=== PATIENT | male | born 1955 | race Two or more races ===

== ENCOUNTER 2020-03-07 09:02 | Inpatient (IN) | payer SELFPAY ==
[~2020-03-07] VITALS: Ht 165.1 cm; Wt 89.2 kg
[~2020-03-07 09:02] MED LIST: NAPR-695 PO
[2020-03-07 09:36] LABS: BASO # 0.1 x10^3/uL (0.0-0.2); BASO % 0 % (0-3); EOS % 0 % (0-3); HEMATOCRIT 44.7 % (39.0-53.0); HEMOGLOBIN 15.5 g/dL (13.0-17.5); LYMPH # 0.9 x10^3/uL (1.0-4.8); LYMPH % 8 % (24-48); MEAN CORPUSCULAR HEMOGLOBIN 31 pg (25-35); MEAN CORPUSCULAR HGB CONC 35 g/dL (31-37); MEAN CORPUSCULAR VOLUME 90 fL (79-100); MONO # 0.9 x10^3/uL (0.0-1.1); MONO % 8 % (0-9); NEUT # 10.5 x10^3/uL (1.8-7.7); NEUT % 85 % (31-73); PLATELET COUNT 178 x10^3/uL (140-400); RED BLOOD COUNT 4.99 x10^6/uL (4.30-5.70); RED CELL DISTRIBUTION WIDTH 14.5 % (11.5-14.5); WHITE BLOOD COUNT 12.4 x10^3/uL (4.0-11.0)
[2020-03-07 09:50] LABS: CALCIUM 9.1 mg/dL (8.5-10.1); CREATININE 0.9 mg/dL (0.7-1.3); GFR 85.2; POTASSIUM 4.1 mmol/L (3.5-5.1)
[2020-03-07 09:54] LABS: ALBUMIN 4.1 g/dL (3.4-5.0); ALBUMIN/GLOBULIN RATIO 1.2 (1.0-1.7); MAGNESIUM 2.2 mg/dL (1.8-2.4); TOTAL BILIRUBIN 1.6 mg/dL (0.2-1.0); TOTAL PROTEIN 7.6 g/dL (6.4-8.2)
--- NOTE | 2020-03-07 10:17 | RAD ---
KNEE BILAT 3V DATE: 03/07/2020 9:26 AM INDICATION: Reason: trauma / Spl. Instructions: / History: COMPARISON: None. FINDINGS: Right: No acute fracture. Prior ORIF of the femur. Joint spaces are preserved. No knee joint effusion. Left: No acute fracture. Joint spaces are maintained. No knee joint effusion. IMPRESSION: No evidence of acute fracture. Electronically signed by: Manpreet Pino MD (03/07/2020 10:14 AM) [id number]
--- NOTE | 2020-03-07 10:21 | RAD ---
ELBOW BILAT 2V DATE: 03/07/2020 9:26 AM INDICATION: Reason: trauma / Spl. Instructions: / History: COMPARISON: None. FINDINGS: Right: There is no evidence of acute fracture or dislocation. The joint spaces are normal. There is no joint effusion. Left: There is no evidence of acute fracture or dislocation. The joint spaces are normal. There is no joint effusion. IMPRESSION: No evidence of acute fracture. Electronically signed by: Manpreet Pino MD (03/07/2020 10:18 AM) [id number]
--- NOTE | 2020-03-07 10:25 | EKG ---
[facility] [address] [place] [address] Test Date: 2020-03-07 Test Time: 09:16:09 Pat Name: BRITTANIE LOVE Department: Room: Gender: M Provider Contracting Consultant: : [id number] Requested By: TIFFANIE NEGRO Order Number: [id number] Reading MD: Kiko Knott MD Measurements Intervals [place] Rate: 86 P: -56 NM: 142 QRS: 46 QRSD: 98 T: 74 QT: 372 QTc: 448 Interpretive Statements SINUS RHYTHM Electronically Signed On 03-29-2020 9:48:39 CDT by Kiko Knott MD
--- NOTE | 2020-03-07 10:31 | RAD ---
FOOT RIGHT 2V DATE: 03/07/2020 9:26 AM INDICATION: Reason: trauma / Spl. Instructions: / History: COMPARISON: None. FINDINGS: Right: No acute fracture. Joint spaces are maintained. Left: No acute fracture. Joint spaces are maintained. IMPRESSION: No evidence of acute fracture. Electronically signed by: Manpreet Pino MD (03/07/2020 10:28 AM) [id number]
--- NOTE | 2020-03-07 10:34 | RAD ---
CT brain without contrast. HISTORY: Right-sided weakness CT scan of the brain was done without contrast. Visualized sinuses are clear. There is no intracranial hemorrhage or subdural hematoma. There is subcutaneous density is near the convexity, sebaceous cyst can have this pattern. There is no mass or shift of the midline. Ventricles are normal in size. There is decreased density in the left basal ganglia continuing into the periventricular white matter on the left consistent with an acute CVA. There is no intracranial hemorrhage. There are subcutaneous calcifications and thickening of the scan on the left which can be seen with an old injury or a hemangioma. IMPRESSION: 1. 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 2. No intracranial hemorrhage. PQRS Compliance Statement: One or more of the following individualized dose reduction techniques were utilized for this examination: 1. Automated exposure control 2. Adjustment of the mA and/or kV according to patient size 3. Use of iterative reconstruction technique Electronically signed by: Min Blas MD (03/07/2020 10:31 AM) [id number]
--- NOTE | 2020-03-07 10:51 | PDOC1 ---
History and Physical Date of Admission Date of Admission DATE: 03/07/20 TIME: 10:51 Identification/Chief Complaint Chief Complaint SEEN IN ER WITH CVA 64 year old male who presents with weakness, slurred speech. According to patient this started yesterday morning. He is unsure what time. has had a fall since that happened. Is having difficult time walking. He is having a difficult time communicating. History is limited secondary to slurred speech CT HEAD C/W CVA Past Medical History Past Medical History PAST MEDICAL HISTORY: Shows normal childhood diseases. No high blood pressure, cancer, TB, asthma, or diabetes. MEDICATIONS: He takes no medicine. ALLERGIES: He has no allergies. SOCIAL HISTORY: He does not drink, smoke, or use illicit drugs. Pulmonary: No pertinent hx Family History Family History: Hypertension Social History Smoke: No ALCOHOL: none Drugs: None Current Medications Current Medications Active Scripts Active Reported Naproxen 375 Mg Tablet 1 Tab PO BID Allergies Allergies: Coded Allergies: No Known Drug Allergies (Unverified , 03/06/15) ROS Review of System Review of Systems: Review of Systems: General: Denies fever, chills, sweats, fatigue Eyes: Denies drainage, blurred vision HENT: Denies rhinorrhea, sore throat Respiratory: Denies cough, shortness of breath, wheezing Cardiac: Denies edema, palpitations, chest pain GI: Denies abdominal pain, N/V MSK: Denies back pain, neck pain Skin: Denies rash, jaundice Neuro: Denies headache, dizziness reports weakness Psychiatric: Denies SI/HI 14 PT ROS OTHERWISE NEG General: YES: Fatigue PSYCHOLOGICAL ROS: No: Anxiety, Behavioral Disorder, Concentration difficultie, Decreased libido, Depression, Disorientation, Hallucinations, Hostility, Irritablity, Memory difficulties, Mood Swings, Obsessive thoughts, Physical abuse, Sexual abuse, Sleep disturbances, Suicidal ideation, Other HEENT: No: Heacaches, Visual Changes, Hearing change, Nasal congestion, Nasal discharge, Oral lesions, Sinus pain, Sore Throat, Epistaxis, Sneezing, Snoring, Tinnitus, Vertigo, Vocal changes, Other ALLERGY AND IMMUNOLOGY: No: Hives, Insect Bite Sensitivity, Itchy/Watery Eyes, Nasal Congestion, Post Nasal Drip, Seasonal Allergies, Other Hematological and Lymphatic: No: Bleeding Problems, Blood Clots, Blood Transfusions, Brusing, Night Sweats, Pallor, Swollen Lymph Nodes, Other Respiratory: No: Cough, Hemoptysis, Orthopnea, Pleuritic Pain, Shortness of breath, SOB with excertion, Sputum Changes, Stridor, Tachypnea, Wheezing, Other Cardiovascular: No Chest Pain, No Palpitations, No Orthopnea, No Paroxysmal Noc. Dyspnea, No Edema, No Lt Headedness, No Other Gastrointestinal: No Nausea, No Vomiting, No Abdominal Pain, No Diarrhea, No Constipation, No Melena, No Hematochezia, No Other Musculoskeletal: Yes Gait Disturbance, Yes Joint Stiffness Neurological: Yes Confusion, Yes Gait Disturbance Skin: No Dry Skin, No Eczema, No Hair Changes, No Lumps, No Mole Changes, No Mottling, No Nail Changes, No Pruritus, No Rash, No Skin Lesion Changes, No Other, No Acne Physical Exam Physical Exam PE: Constitutional: Well developed, well nourished, Cooperative, tearful, non-toxic appearing HEENT: Normocephalic, atraumatic, oropharynx moist, EOMI, PERRL, no drainage from eyes, normal conjunctiva Neck: Supple, normal range of motion, no stridor Cardiovascular: RRR, 2+ radial pulses bilaterally, no edema Respiratory: CTA bilaterally, no respiratory distress, no wheezing/crackles Abdomen: Soft, nontender, nondistended, no masses Skin: Warm, dry, intact MULTIPLE SKIN FIBROMAS c/w neurofibromatosis Extremities: No obvious deformities Neurologic: Alert and Oriented x3, 0/5 strength RUE, 5/5 strength LUE/LLE, 4/5 strengh RLE, R sided facial droop, slurred speech, decreased sensation to R lower face, unable to ambulate Psychologic: Normal affect, normal judgment, normal mood. No SI/HI General: Alert, Oriented X3, Cooperative, No acute distress HEENT: Atraumatic Lungs: Clear to auscultation Heart: RRR Breasts: Not examined Abdomen: Normal bowel sounds, Soft Rectal Exam: not examined Extremities: No cyanosis Psych/Mental Status: Mood NL Vitals Vitals Vital Signs Date Time Temp Pulse Resp B/P (MAP) Pulse Ox O2 Delivery O2 Flow Rate FiO2 03/07/20 10:15 84 160/77 (104) 95 Room Air 03/07/20 09:06 98.5 20 98.5 Labs Labs Laboratory Tests Test 03/07/20 09:14 03/07/20 09:20 Glucose (Fingerstick) 112 mg/dL (70-99) White Blood Count 12.4 x10^3/uL (4.0-11.0) Red Blood Count 4.99 x10^6/uL (4.30-5.70) Hemoglobin 15.5 g/dL (13.0-17.5) Hematocrit 44.7 % (39.0-53.0) Mean Corpuscular Volume 90 fL (79-100) Mean Corpuscular Hemoglobin 31 pg (25-35) Mean Corpuscular Hemoglobin Concent 35 g/dL (31-37) Red Cell Distribution Width 14.5 % (11.5-14.5) Platelet Count 178 x10^3/uL (140-400) Neutrophils (%) (Auto) 85 % (31-73) Lymphocytes (%) (Auto) 8 % (24-48) Monocytes (%) (Auto) 8 % (0-9) Eosinophils (%) (Auto) 0 % (0-3) Basophils (%) (Auto) 0 % (0-3) Neutrophils # (Auto) 10.5 x10^3/uL (1.8-7.7) Lymphocytes # (Auto) 0.9 x10^3/uL (1.0-4.8) Monocytes # (Auto) 0.9 x10^3/uL (0.0-1.1) Eosinophils # (Auto) 0.0 x10^3/uL (0.0-0.7) Basophils # (Auto) 0.1 x10^3/uL (0.0-0.2) Prothrombin Time 14.0 SEC (11.7-14.0) Prothromb Time International Ratio 1.1 (0.8-1.1) Activated Partial Thromboplast Time 33 SEC (24-38) Sodium Level 145 mmol/L (136-145) Potassium Level 4.1 mmol/L (3.5-5.1) Chloride Level 106 mmol/L (98-107) Carbon Dioxide Level 22 mmol/L (21-32) Anion Gap 17 (6-14) Blood Urea Nitrogen 36 mg/dL (8-26) Creatinine 0.9 mg/dL (0.7-1.3) Estimated GFR (Cockcroft-Gault) 85.2 BUN/Creatinine Ratio 40 (6-20) Glucose Level 110 mg/dL (70-99) Calcium Level 9.1 mg/dL (8.5-10.1) Magnesium Level 2.2 mg/dL (1.8-2.4) Total Bilirubin 1.6 mg/dL (0.2-1.0) Aspartate Amino Transf (AST/SGOT) 28 U/L (15-37) Alanine Aminotransferase (ALT/SGPT) 37 U/L (16-63) Alkaline Phosphatase 97 U/L (46-116) Troponin I Quantitative < 0.017 ng/mL (0.000-0.055) Total Protein 7.6 g/dL (6.4-8.2) Albumin 4.1 g/dL (3.4-5.0) Albumin/Globulin Ratio 1.2 (1.0-1.7) Laboratory Tests Test 03/07/20 09:14 03/07/20 09:20 Glucose (Fingerstick) 112 mg/dL (70-99) White Blood Count 12.4 x10^3/uL (4.0-11.0) Red Blood Count 4.99 x10^6/uL (4.30-5.70) Hemoglobin 15.5 g/dL (13.0-17.5) Hematocrit 44.7 % (39.0-53.0) Mean Corpuscular Volume 90 fL (79-100) Mean Corpuscular Hemoglobin 31 pg (25-35) Mean Corpuscular Hemoglobin Concent 35 g/dL (31-37) Red Cell Distribution Width 14.5 % (11.5-14.5) Platelet Count 178 x10^3/uL (140-400) Neutrophils (%) (Auto) 85 % (31-73) Lymphocytes (%) (Auto) 8 % (24-48) Monocytes (%) (Auto) 8 % (0-9) Eosinophils (%) (Auto) 0 % (0-3) Basophils (%) (Auto) 0 % (0-3) Neutrophils # (Auto) 10.5 x10^3/uL (1.8-7.7) Lymphocytes # (Auto) 0.9 x10^3/uL (1.0-4.8) Monocytes # (Auto) 0.9 x10^3/uL (0.0-1.1) Eosinophils # (Auto) 0.0 x10^3/uL (0.0-0.7) Basophils # (Auto) 0.1 x10^3/uL (0.0-0.2) Prothrombin Time 14.0 SEC (11.7-14.0) Prothromb Time International Ratio 1.1 (0.8-1.1) Activated Partial Thromboplast Time 33 SEC (24-38) Sodium Level 145 mmol/L (136-145) Potassium Level 4.1 mmol/L (3.5-5.1) Chloride Level 106 mmol/L (98-107) Carbon Dioxide Level 22 mmol/L (21-32) Anion Gap 17 (6-14) Blood Urea Nitrogen 36 mg/dL (8-26) Creatinine 0.9 mg/dL (0.7-1.3) Estimated GFR (Cockcroft-Gault) 85.2 BUN/Creatinine Ratio 40 (6-20) Glucose Level 110 mg/dL (70-99) Calcium Level 9.1 mg/dL (8.5-10.1) Magnesium Level 2.2 mg/dL (1.8-2.4) Total Bilirubin 1.6 mg/dL (0.2-1.0) Aspartate Amino Transf (AST/SGOT) 28 U/L (15-37) Alanine Aminotransferase (ALT/SGPT) 37 U/L (16-63) Alkaline Phosphatase 97 U/L (46-116) Troponin I Quantitative < 0.017 ng/mL (0.000-0.055) Total Protein 7.6 g/dL (6.4-8.2) Albumin 4.1 g/dL (3.4-5.0) Albumin/Globulin Ratio 1.2 (1.0-1.7) Images Images CT brain without contrast. HISTORY: Right-sided weakness CT scan of the brain was done without contrast. Visualized sinuses are clear. There is no intracranial hemorrhage or subdural hematoma. There is subcutaneous density is near the convexity, sebaceous cyst can have this pattern. There is no mass or shift of the midline. Ventricles are normal in size. There is decreased density in the left basal ganglia continuing into the periventricular white matter on the left consistent with an acute CVA. There is no intracranial hemorrhage. There are subcutaneous calcifications and thickening of the scan on the left which can be seen with an old injury or a hemangioma. IMPRESSION: 1. 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 2. No intracranial hemorrhage. VTE Prophylaxis Ordered VTE Prophylaxis Devices: Yes VTE Pharmacological Prophylaxi: Yes Assessment/Plan Assessment/Plan IMPRESSION: 1. 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 POA // date of event 03/06 2. No intracranial hemorrhage. 3. Neurofibromatosis. plan admit NEUROLOGY CONSULT PT/OT MRI HEAD DOPPLER CAROTIDS ICU BED echo 43 MIN CC TIME Justicifation of Admission Dx: Justifications for Admission: Justification of Admission Dx: Yes Stroke - Ischemic: Stroke-Ischemic Comments: ACUTE CVA IN NEED OF INPATIENT CARE KINSEY PERDOMO MD Mar 07, 2020 10:51
[2020-03-07 11:24] LABS: BILIRUBIN,URINE SMALL (NEG); CLARITY,URINE CLEAR; COLOR,URINE AMBER; NITRITE,URINE NEGATIVE (NEG); PH,URINE 5.5 (<5.0-8.0); PROTEIN,URINE 30 mg/dL (NEG-TRACE); UROBILINOGEN,URINE 0.2 mg/dL (0.2 mg/dL)
[2020-03-07 12:01] LABS: BACTERIA,URINE 0 /HPF (0-FEW); RBC,URINE 0 /HPF (0-2); SQUAMOUS EPITHELIAL CELL,UR MOD /LPF; WBC,URINE 0 /HPF (0-4)
--- NOTE | 2020-03-07 13:23 | PHYS DOC ---
Past Medical History Past Medical History: No Pertinent History Additional Past Medical Histor: patient a poor historian, says he doesn't take medication daily Smoking Status: Former Smoker Alcohol Use: None General Adult EDM: Chief Complaint: NEURO SYMPTOMS/DEFICITS HPI: HPI: Patient is a 64 year old male who presents with weakness, slurred speech. According to patient this started yesterday morning. He is unsure what time. He is unsure if he has had a fall since that happened. Is having difficult time walking. He is having a difficult time communicating. History is limited secondary to slurred speech and language barrier Review of Systems: Review of Systems: General: Denies fever, chills, sweats, fatigue Eyes: Denies drainage, blurred vision HENT: Denies rhinorrhea, sore throat Respiratory: Denies cough, shortness of breath, wheezing Cardiac: Denies edema, palpitations, chest pain GI: Denies abdominal pain, N/V MSK: Denies back pain, neck pain Skin: Denies rash, jaundice Neuro: Denies headache, dizziness reports weakness Psychiatric: Denies SI/HI Heart Score: Risk Factors: Risk Factors: DM, Current or recent (<one month) smoker, HTN, HLP, family history of CAD, obesity. Risk Scores: Score 0 - 3: 2.5% MACE over next 6 weeks - Discharge Home Score 4 - 6: 20.3% MACE over next 6 weeks - Admit for Clinical Observation Score 7 - 10: 72.7% MACE over next 6 weeks - Early Invasive Strategies Allergies: Allergies: Allergies Coded Allergies Type Severity Reaction Last Updated Verified No Known Drug Allergies 03/06/15 No Physical Exam: PE: Constitutional: Well developed, well nourished, Cooperative, tearful, non-toxic appearing HEENT: Normocephalic, atraumatic, oropharynx moist, EOMI, PERRL, no drainage from eyes, normal conjunctiva Neck: Supple, normal range of motion, no stridor Cardiovascular: RRR, 2+ radial pulses bilaterally, no edema Respiratory: CTA bilaterally, no respiratory distress, no wheezing/crackles Abdomen: Soft, nontender, nondistended, no masses Skin: Warm, dry, intact Extremities: No obvious deformities Neurologic: Alert and Oriented x3, 0/5 strength RUE, 5/5 strength LUE/LLE, 4/5 strengh RLE, R sided facial droop, slurred speech, decreased sensation to R lower face, unable to ambulate Psychologic: Normal affect, normal judgment, normal mood. No SI/HI Current Patient Data: Labs: Laboratory Tests Test 03/07/20 09:14 03/07/20 09:20 03/07/20 11:14 Glucose (Fingerstick) 112 mg/dL (70-99) H White Blood Count 12.4 x10^3/uL (4.0-11.0) H Red Blood Count 4.99 x10^6/uL (4.30-5.70) Hemoglobin 15.5 g/dL (13.0-17.5) Hematocrit 44.7 % (39.0-53.0) Mean Corpuscular Volume 90 fL (79-100) Mean Corpuscular Hemoglobin 31 pg (25-35) Mean Corpuscular Hemoglobin Concent 35 g/dL (31-37) Red Cell Distribution Width 14.5 % (11.5-14.5) Platelet Count 178 x10^3/uL (140-400) Neutrophils (%) (Auto) 85 % (31-73) H Lymphocytes (%) (Auto) 8 % (24-48) L Monocytes (%) (Auto) 8 % (0-9) Eosinophils (%) (Auto) 0 % (0-3) Basophils (%) (Auto) 0 % (0-3) Neutrophils # (Auto) 10.5 x10^3/uL (1.8-7.7) H Lymphocytes # (Auto) 0.9 x10^3/uL (1.0-4.8) L Monocytes # (Auto) 0.9 x10^3/uL (0.0-1.1) Eosinophils # (Auto) 0.0 x10^3/uL (0.0-0.7) Basophils # (Auto) 0.1 x10^3/uL (0.0-0.2) Prothrombin Time 14.0 SEC (11.7-14.0) Prothrombin Time INR 1.1 (0.8-1.1) Activated Partial Thromboplast Time 33 SEC (24-38) Sodium Level 145 mmol/L (136-145) Potassium Level 4.1 mmol/L (3.5-5.1) Chloride Level 106 mmol/L (98-107) Carbon Dioxide Level 22 mmol/L (21-32) Anion Gap 17 (6-14) H Blood Urea Nitrogen 36 mg/dL (8-26) H Creatinine 0.9 mg/dL (0.7-1.3) Estimated GFR (Cockcroft-Gault) 85.2 BUN/Creatinine Ratio 40 (6-20) H Glucose Level 110 mg/dL (70-99) H Calcium Level 9.1 mg/dL (8.5-10.1) Magnesium Level 2.2 mg/dL (1.8-2.4) Total Bilirubin 1.6 mg/dL (0.2-1.0) H Aspartate Amino Transferase (AST) 28 U/L (15-37) Alanine Aminotransferase (ALT) 37 U/L (16-63) Alkaline Phosphatase 97 U/L (46-116) Troponin I Quantitative < 0.017 ng/mL (0.000-0.055) Total Protein 7.6 g/dL (6.4-8.2) Albumin 4.1 g/dL (3.4-5.0) Albumin/Globulin Ratio 1.2 (1.0-1.7) Urine Collection Type Unknown Urine Color [place] Urine Clarity Clear Urine pH 5.5 (<5.0-8.0) Urine Specific [place] >=1.030 (1.000-1.030) Urine Protein 30 mg/dL (NEG-TRACE) Urine Glucose (UA) Negative mg/dL (NEG) Urine Ketones (Stick) >=80 mg/dL (NEG) Urine Blood Negative (NEG) Urine Nitrite Negative (NEG) Urine Bilirubin Small (NEG) Urine Urobilinogen Dipstick 0.2 mg/dL (0.2 mg/dL) Urine Leukocyte Esterase Negative (NEG) Urine RBC 0 /HPF (0-2) Urine WBC 0 /HPF (0-4) Urine Squamous Epithelial Cells Mod /LPF Urine Bacteria 0 /HPF (0-FEW) Urine Mucus Mod /LPF Laboratory Tests 03/07/20 09:20 Laboratory Tests 03/07/20 09:20 Vital Signs: Vital Signs Date Time Temp Pulse Resp B/P (MAP) Pulse Ox O2 Delivery O2 Flow Rate FiO2 03/07/20 12:14 82 155/78 (103) 98 Room Air 03/07/20 09:06 98.5 20 98.5 EKG: EKG: [] Radiology/Procedures: Radiology/Procedures: [] Course & Med Decision Making: Course & Med Decision Making Pertinent Labs and Imaging studies reviewed. (See chart for details) Patient is a 64 year-old male who presents to the Emergency Room with neurologic complaints that are concerning for an acute stroke. Stroke protocol was set off upon arrival to the Emergency Room and patient was taken for a CT head. At time of arrival, patient is protecting their airway and does not need intubation at this time. CT head shows basal ganglia stroke. At this time, patient is not a candidate for tPA due to time of onset. Further work up was ordered to help risk stratify patient and to evaluate for other causes of neurologic deficits including CBC, BMP, troponin, EKG, CXR, magnesium. At this time, CT angio head/neck is not indicated and patient is not be a potential candidate for IR clot retreival. Patient will be admitted for MRI and further evaluation. Plan of care was discussed with patient/family and all questions were answered. Dragon Disclaimer: Dragon Disclaimer: This electronic medical record was generated, in whole or in part, using a voice recognition dictation system. Departure Departure Referrals: UNKNOWN PCP NAME (PCP) Justicifation of Admission Dx: Justifications for Admission: Justification of Admission Dx: Yes Stroke - Ischemic: Stroke-Ischemic Critical Care Time Critical Care: Authorized and Performed by: Tiffanie Quintanilla MD Total critical care time: approximately 35 minutes Due to a high probability of clinically significant, life threatening deterioration, the patient required my highest level of preparedness to intervene emergently and I personally spent this critical care time directly and personally managing the patient. This critical care time included obtaining a history; examining the patient; pulse oximetry; ventilator management if necessary; ordering and review of studies; arranging urgent treatment with devel opment of a management plan; evaluation of patient's response to treatment; frequent reassessment; discussion with patient/family; and, discussions with other providers. This critical care time was performed to assess and manage the high probability of imminent, life-threatening deterioration that could result in multi-organ failure. It was exclusive of separately billable procedures and treating other patients and teaching time. Please see MDM section and the rest of the note for further information on patient assessment and treatment. TIFFANIE QUINTANILLA MD Mar 07, 2020 13:23
[2020-03-07] MEDS ORDERED: ASPIRIN RECTAL 300 MG SUPP. PR PRN (13:30)
[2020-03-07] MEDS ORDERED: ACETAMINOPHEN 325 MG TABLET. PO PRN ×2 (13:30→16:15)
[2020-03-07] MEDS ORDERED: ACETAMINOPHEN 650 MG SUPP.RECT. PR PRN ×2 (13:30→16:15)
--- NOTE | 2020-03-07 14:33 | PDOC2 ---
NEUROLOGY CONSULT Date of Admission Date of Admission DATE: 03/07/20 TIME: 14:29 Reason for Consult Reason for Consult: Stroke Referring Physician Referring Physician: Dr. Diallo Source Source: Chart review, Patient History of Present Illness History of Present Illness The patient is a 64-year-old right-handed male who noticed right sided weakness yesterday and came to the emergency room today. He denies any prior history of stroke, seizure, head injury. There is no headache, diplopia, dysphagia. He did have some trouble with the cognitive tasks on the NIH score and became tea rful during them, nurse says. Past Medical History CENTRAL NERVOUS SYSTEM: Other (Neurofibromatosis) Past Surgical History Past Surgical History: Hernia Repair, Other (Repair right leg fracture) Family History Family History: No pertinent hx (No neurofibromatosis in the family) Social History Social History , works at a hotel, occasional tobacco and alcohol Current Medications Current Medications Current Medications Simvastatin (Zocor) 10 mg QHS PO ; Start 03/07/20 at 21:00 Acetaminophen (Tylenol) 650 mg PRN Q6HRS PRN PO TEMP > 100.4F; Start 03/07/20 at 13:30 Acetaminophen (Tylenol Supp) 650 mg PRN Q4HRS PRN UT TEMP > 100.4F; Start 03/07/20 at 13:30 Aspirin (Ecotrin) 325 mg DAILYWBKFT PO ; Start 03/08/20 at 08:00 Aspirin (Aspirin Rectal Supp) 300 mg PRN DAILY PRN UT IF UNABLE TO TAKE PO; Start 03/07/20 at 13:30 Active Scripts Active Reported Naproxen 375 Mg Tablet 1 Tab PO BID Allergies Allergies: Coded Allergies: No Known Drug Allergies (Unverified , 03/06/15) ROS Review of System Negative for fever, chills, weight loss, shortness of breath, chest pain, indigestion, hematochezia, melena, and dysuria. Full 14-point review of systems is negative. Physical Exam Physical Examination General: Well-developed, well-nourished, male in no acute distress. Numerous neurofibromas HEENT: Normocephalic andatraumatic. Tympanic membranes clear.Temporal arteriespulsatile and nontender.Fundoscopic exam unremarkable Neck: Supple without bruit, no meningismus Musculoskeletal: Stability:see neurologic. Gait exam:see neurologic. Tone:see neurologic.Str ength:see neurologic. Neurological: Mental Status: orientation, memory, attention span/concentration, language, fund of knowledge normal, speaks only Serbian. Cranial Nerves:Pupils equal and reactive to light, extraocular movements areintact, visual izquierdo are full to confrontation. Facial sensation is normal. There is mild right central facial weakness. Vestibulo-ocular reflex is intact. Palate elevates and tongue protrudes in midline. All other cranial related problems are negative except as mentioned before.Reflexes:2+ and symmetric with flexor plantar responses. Motor:3/5 right hemiparesis, otherwise 5/5 strength with normal tone and bulk. Coordination:Finger-nose finger and ydrq-mn-[id number] testing are normal. Rapid alternating movements and fine finger movements are intact. Gait:Not tested. Sensory:Normal pinprick, vibration, light touch, proprioception. Vitals VITALS Vital Signs Date Time Temp Pulse Resp B/P (MAP) Pulse Ox O2 Delivery O2 Flow Rate FiO2 03/07/20 13:44 82 159/74 (102) 97 Room Air 03/07/20 09:06 98.5 20 98.5 Labs Labs Laboratory Tests Test 03/07/20 09:14 03/07/20 09:20 03/07/20 11:14 Glucose (Fingerstick) 112 mg/dL (70-99) White Blood Count 12.4 x10^3/uL (4.0-11.0) Red Blood Count 4.99 x10^6/uL (4.30-5.70) Hemoglobin 15.5 g/dL (13.0-17.5) Hematocrit 44.7 % (39.0-53.0) Mean Corpuscular Volume 90 fL (79-100) Mean Corpuscular Hemoglobin 31 pg (25-35) Mean Corpuscular Hemoglobin Concent 35 g/dL (31-37) Red Cell Distribution Width 14.5 % (11.5-14.5) Platelet Count 178 x10^3/uL (140-400) Neutrophils (%) (Auto) 85 % (31-73) Lymphocytes (%) (Auto) 8 % (24-48) Monocytes (%) (Auto) 8 % (0-9) Eosinophils (%) (Auto) 0 % (0-3) Basophils (%) (Auto) 0 % (0-3) Neutrophils # (Auto) 10.5 x10^3/uL (1.8-7.7) Lymphocytes # (Auto) 0.9 x10^3/uL (1.0-4.8) Monocytes # (Auto) 0.9 x10^3/uL (0.0-1.1) Eosinophils # (Auto) 0.0 x10^3/uL (0.0-0.7) Basophils # (Auto) 0.1 x10^3/uL (0.0-0.2) Prothrombin Time 14.0 SEC (11.7-14.0) Prothromb Time International Ratio 1.1 (0.8-1.1) Activated Partial Thromboplast Time 33 SEC (24-38) Sodium Level 145 mmol/L (136-145) Potassium Level 4.1 mmol/L (3.5-5.1) Chloride Level 106 mmol/L (98-107) Carbon Dioxide Level 22 mmol/L (21-32) Anion Gap 17 (6-14) Blood Urea Nitrogen 36 mg/dL (8-26) Creatinine 0.9 mg/dL (0.7-1.3) Estimated GFR (Cockcroft-Gault) 85.2 BUN/Creatinine Ratio 40 (6-20) Glucose Level 110 mg/dL (70-99) Calcium Level 9.1 mg/dL (8.5-10.1) Magnesium Level 2.2 mg/dL (1.8-2.4) Total Bilirubin 1.6 mg/dL (0.2-1.0) Aspartate Amino Transf (AST/SGOT) 28 U/L (15-37) Alanine Aminotransferase (ALT/SGPT) 37 U/L (16-63) Alkaline Phosphatase 97 U/L (46-116) Troponin I Quantitative < 0.017 ng/mL (0.000-0.055) Total Protein 7.6 g/dL (6.4-8.2) Albumin 4.1 g/dL (3.4-5.0) Albumin/Globulin Ratio 1.2 (1.0-1.7) Urine Collection Type Unknown Urine Color Pushpa Urine Clarity Clear Urine pH 5.5 (<5.0-8.0) Urine Specific [place] >=1.030 (1.000-1.030) Urine Protein 30 mg/dL (NEG-TRACE) Urine Glucose (UA) Negative mg/dL (NEG) Urine Ketones (Stick) >=80 mg/dL (NEG) Urine Blood Negative (NEG) Urine Nitrite Negative (NEG) Urine Bilirubin Small (NEG) Urine Urobilinogen Dipstick 0.2 mg/dL (0.2 mg/dL) Urine Leukocyte Esterase Negative (NEG) Urine RBC 0 /HPF (0-2) Urine WBC 0 /HPF (0-4) Urine Squamous Epithelial Cells Mod /LPF Urine Bacteria 0 /HPF (0-FEW) Urine Mucus Mod /LPF Laboratory Tests Test 03/07/20 09:14 03/07/20 09:20 03/07/20 11:14 Glucose (Fingerstick) 112 mg/dL (70-99) White Blood Count 12.4 x10^3/uL (4.0-11.0) Red Blood Count 4.99 x10^6/uL (4.30-5.70) Hemoglobin 15.5 g/dL (13.0-17.5) Hematocrit 44.7 % (39.0-53.0) Mean Corpuscular Volume 90 fL (79-100) Mean Corpuscular Hemoglobin 31 pg (25-35) Mean Corpuscular Hemoglobin Concent 35 g/dL (31-37) Red Cell Distribution Width 14.5 % (11.5-14.5) Platelet Count 178 x10^3/uL (140-400) Neutrophils (%) (Auto) 85 % (31-73) Lymphocytes (%) (Auto) 8 % (24-48) Monocytes (%) (Auto) 8 % (0-9) Eosinophils (%) (Auto) 0 % (0-3) Basophils (%) (Auto) 0 % (0-3) Neutrophils # (Auto) 10.5 x10^3/uL (1.8-7.7) Lymphocytes # (Auto) 0.9 x10^3/uL (1.0-4.8) Monocytes # (Auto) 0.9 x10^3/uL (0.0-1.1) Eosinophils # (Auto) 0.0 x10^3/uL (0.0-0.7) Basophils # (Auto) 0.1 x10^3/uL (0.0-0.2) Prothrombin Time 14.0 SEC (11.7-14.0) Prothromb Time International Ratio 1.1 (0.8-1.1) Activated Partial Thromboplast Time 33 SEC (24-38) Sodium Level 145 mmol/L (136-145) Potassium Level 4.1 mmol/L (3.5-5.1) Chloride Level 106 mmol/L (98-107) Carbon Dioxide Level 22 mmol/L (21-32) Anion Gap 17 (6-14) Blood Urea Nitrogen 36 mg/dL (8-26) Creatinine 0.9 mg/dL (0.7-1.3) Estimated GFR (Cockcroft-Gault) 85.2 BUN/Creatinine Ratio 40 (6-20) Glucose Level 110 mg/dL (70-99) Calcium Level 9.1 mg/dL (8.5-10.1) Magnesium Level 2.2 mg/dL (1.8-2.4) Total Bilirubin 1.6 mg/dL (0.2-1.0) Aspartate Amino Transf (AST/SGOT) 28 U/L (15-37) Alanine Aminotransferase (ALT/SGPT) 37 U/L (16-63) Alkaline Phosphatase 97 U/L (46-116) Troponin I Quantitative < 0.017 ng/mL (0.000-0.055) Total Protein 7.6 g/dL (6.4-8.2) Albumin 4.1 g/dL (3.4-5.0) Albumin/Globulin Ratio 1.2 (1.0-1.7) Urine Collection Type Unknown Urine Color Pushpa Urine Clarity Clear Urine pH 5.5 (<5.0-8.0) Urine Specific [place] >=1.030 (1.000-1.030) Urine Protein 30 mg/dL (NEG-TRACE) Urine Glucose (UA) Negative mg/dL (NEG) Urine Ketones (Stick) >=80 mg/dL (NEG) Urine Blood Negative (NEG) Urine Nitrite Negative (NEG) Urine Bilirubin Small (NEG) Urine Urobilinogen Dipstick 0.2 mg/dL (0.2 mg/dL) Urine Leukocyte Esterase Negative (NEG) Urine RBC 0 /HPF (0-2) Urine WBC 0 /HPF (0-4) Urine Squamous Epithelial Cells Mod /LPF Urine Bacteria 0 /HPF (0-FEW) Urine Mucus Mod /LPF Images Images CT brain without contrast. HISTORY: Right-sided weakness CT scan of the brain was done without contrast. Visualized sinuses are clear. There is no intracranial hemorrhage or subdural hematoma. There is subcutaneous density is near the convexity, sebaceous cyst can have this pattern. There is no mass or shift of the midline. Ventricles are normal in size. There is decreased density in the left basal ganglia continuing into the periventricular white matter on the left consistent with an acute CVA. There is no intracranial hemorrhage. There are subcutaneous calcifications and thickening of the scan on the left which can be seen with an old injury or a hemangioma. IMPRESSION: 1. 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 2. No intracranial hemorrhage. Assessment/Plan Assessment/Plan Impression: Acute left basal ganglia infarct with right hemiparesis. No cognitive deficits on bedside examination. Neurofibromatosis. Recommendations: MRI of the brain Echocardiogram Carotid Doppler studies Rehabilitation modalities Aspirin, he is dorene to aspirin. Check lipids, start statin Also see stroke orders. Thank you for letting me help with the patient's care. SHAE JEAN BAPTISTE MD Mar 07, 2020 14:33
[2020-03-07 14:53] VITALS: BP 142/76
[2020-03-07] MEDS ORDERED: ALBUTEROL SULFATE 2.5 MG/3 ML NEBU. NEB PRN (16:15)
[2020-03-07] MEDS ORDERED: 0.9 % SODIUM CHLORIDE 10 ML DISP.SYRIN. IV PRN (16:15)
[2020-03-07] MEDS ORDERED: DOCUSATE SODIUM 100 MG CAPSULE. PO PRN (16:15)
[2020-03-07] MEDS ORDERED: guaiFENesin ORAL 200 MG/10 ML LIQUID. PO PRN (16:15)
[2020-03-07] MEDS ORDERED: ONDANSETRON PF 4 MG/2 ML VIAL. IV PRN (16:15)
[2020-03-07] MEDS ORDERED: LORazepam 0.5 MG TABLET PO PRN (16:15)
[2020-03-07] MEDS ORDERED: cloNIDine HCL 0.1 MG TABLET PO PRN (16:15)
--- NOTE | 2020-03-07 16:20 | CARD ---
MR#: [id number] Date of Study: 03/07/2020 Ordering Physician: SHAE JEAN BAPTISTE, Referring Physician: SHAE JEAN BAPTISTE, Tech: Nyasia Crooks CIERRA APPROVED REPORT EXAM: Two-dimensional and M-mode echocardiogram with Doppler and color Doppler. Other Information Quality : Good Technically limited study due to body habitus. INDICATION CVA/TIA Echo Enhancing Agent Agent/Amount Used: Agitated Saline 16mL 2D DIMENSIONS Left Atrium(2D)2.6 (1.6-4.0cm)IVSd1.3 (0.7-1.1cm) Aortic Root(2D)2.9 (2.0-3.7cm)LVDd4.0 (3.9-5.9cm) LVOT Diameter1.9 (1.8-2.4cm)PWd1.3 (0.7-1.1cm) LVDs2.7 (2.5-4.0cm)FS (%) 32.4 % SV42.8 mlLVEF(%)61.3 (>50%) Aortic Valve AoV Peak Alex.124.4cm/sAoV VTI21.2cm AO Peak GR.6.2mmHgLVOT VTI 21.45cm AO Mean GR.4mmHgAVA (VTI)2.90cm2 Mitral Valve MV E Fknqoqaz38.8cm/sMV DECEL CLWL630pc MV A Iceunmib65.3cm/sE/A Ratio0.7 TDI Lateral E' P. V8.82cm/sMedial E' P. V6.11cm/s E/Lateral E'7.6E/Medial E'10.9 Tricuspid Valve TR P. Jjpvokol936mn/sRAP ULONCWXR0mvEq TR Peak Gr.62uyMdQYYP42reTw LEFT VENTRICLE The left ventricle is normal size. There is normal left ventricular wall thickness. The left ventricu lar systolic function is normal and the ejection fraction is within normal range. The Ejection Fracti on is 55-60%. There is normal LV segmental wall motion. Transmitral Doppler flow pattern is Grade I-a bnormal relaxation pattern. RIGHT VENTRICLE The right ventricle is normal size. The right ventricular systolic function is normal. ATRIA The left atrium size is normal. The right atrium size is normal. The interatrial septum is intact wit h no evidence for an atrial septal defect or patent foramen ovale as noted on 2-D or Doppler imaging. Injection of bubbles documented no obvious interatrial shunt. If there is high suspicion for interat rial shunt, consider SETH. AORTIC VALVE The aortic valve is calcified but opens well. Doppler and Color Flow revealed no significant aortic r egurgitation. There is no significant aortic valvular stenosis. MITRAL VALVE The mitral valve is normal in structure and function. There is no evidence of mitral valve prolapse. There is no mitral valve stenosis. Doppler and Color-flow revealed trace to mild mitral regurgitation . TRICUSPID VALVE The tricuspid valve is normal in structure and function. Doppler and Color Flow revealed physiologica l tricuspid regurgitation. The PA pressure was estimated at 23 mmHg. There is no tricuspid valve sten osis. PULMONIC VALVE The pulmonic valve is not well visualized. Doppler and Color Flow revealed no pulmonic valvular regur gitation. There is no pulmonic valvular stenosis. GREAT VESSELS The aortic root is normal in size. The ascending aorta is not well seen. The IVC is normal in size an d collapses >50% with inspiration. PERICARDIAL EFFUSION There is no evidence of significant pericardial effusion. Critical Notification Critical Value: No <Conclusion> The left ventricular systolic function is normal and the ejection fraction is within normal range. Th e Ejection Fraction is 55-60%. There is normal LV segmental wall motion. Injection of bubbles documented no obvious interatrial shunt. If there is high suspicion for interatr ial shunt, consider SETH. Signed by : Kiko Knott, Electronically Approved : 03/07/2020 16:19:44
--- NOTE | 2020-03-07 19:05 | RAD ---
BRAIN W/O CONTRAST History:Reason: left basal ganglia infarct, neurofibromatosis*CALL ANDREY [phone] / [facility]. Instructions: / History: Technique: Multiplanar, multi sequential MR imaging was performed of the brain without contrast. Comparison: CT March 07, 2020 Findings: Acute left garcia radiata/lentiform nucleus infarct. Increased gradient hypointensity within the infarct, may indicate petechial hemorrhage No additional acute infarct. No acute intracranial hemorrhage. No mass effect. No hydrocephalus. Chronic right cerebellar infarct. Mild foci of FLAIR hyperintensity within the hemispheric white matter, within normal range for age. Imaged orbits are unremarkable. Imaged paranasal sinuses and mastoid air cells are clear. Diffuse cutaneous nodules compatible with history of neurofibromatosis. Impression: 1. Acute left garcia radiata/lentiform nucleus infarct with petechial hemorrhage. 2. Small chronic right cerebellar lacunar infarct. Electronically signed by: Sang Jones DO (03/07/2020 7:02 PM) [facility]
[2020-03-07 19:10] VITALS: BP 153/74
[2020-03-07] MEDS: IV NORMAL SALINE 1000ML BAG 1,000 ML IV SCH (19:20)
--- NOTE | 2020-03-07 19:20 | RAD ---
DOPPLER CAROTID BILAT History: Reason: CVA / Spl. Instructions: / History: COMPARISON: None Technique: Duplex sonography of the cervical portion of both carotid arteries was performed. Real-time grayscale, color flow Doppler, and Doppler spectral waveform analysis is performed. PQRS Compliance Statement - Stenosis calculations for CT, MR and conventional angiography are based upon measurement of the distal ICA diameter in accordance with the NASCET methodology. Stenosis calculations for carotid ultrasound studies are derived from validated velocity criteria which are known to correlate with the NASCET methodology. Findings: Right side: Peak systolic flow velocity of the CCA is 85 cm/sec. Peak systolic flow velocity of the ICA is 87 cm/sec. The ICA/CCA ratio is 1.02. Peak end diastolic flow velocity of the ICA is 28 cm/sec. The peak systolic velocity of the ECA is 87 cm/sec. Mild atheromatous plaque. Left side: Peak systolic flow velocity of the CCA is 86 cm/sec. Peak systolic flow velocity of the ICA is 83 cm/sec. The ICA/CCA ratio is 0.96. Peak end diastolic flow velocity of the ICA is 25 cm/sec. Peak systolic flow velocity of the ECA is 88 cm/sec. Mild atheromatous plaque. Vertebral arteries: Bilateral vertebral arteries demonstrate antegrade flow. IMPRESSION: 1. No hemodynamically significant internal carotid artery stenosis. 2. Mild atheromatous plaque bilaterally. Electronically signed by: Sang Jones DO (03/07/2020 7:17 PM) [facility]
[2020-03-07] MEDS: ENOXAPARIN 40 MG/0.4 ML SYRINGE. SQ SCH (19:21)
--- NOTE | 2020-03-07 19:40 | NUR ---
The patient, BRITTANIE LOVE, 64 y/o, M admitted by KINSEY PERDOMO MD, was given written information regarding hospital policies, unit procedures and contact persons. Valuables were checked and patient admission database completed using language line. Patient taken down for brain MRI by this RN. NIH performed on admission and at shift change with Pushpa BELLAMY.
[2020-03-07] MEDS: SIMVASTATIN 10 MG TABLET PO SCH (21:27)
[2020-03-07 22:36] VITALS: BP 127/92
[2020-03-08] VITALS (12 sets, daily range): BP systolic 111–153; BP diastolic 62–90
[2020-03-08 04:51] LABS: BASO % 1 % (0-3); EOS # 0.1 x10^3/uL (0.0-0.7); EOS % 1 % (0-3); HEMATOCRIT 41.3 % (39.0-53.0); HEMOGLOBIN 14.1 g/dL (13.0-17.5); LYMPH % 10 % (24-48); MEAN CORPUSCULAR HEMOGLOBIN 31 pg (25-35); MEAN CORPUSCULAR HGB CONC 34 g/dL (31-37); MEAN CORPUSCULAR VOLUME 90 fL (79-100); MONO % 10 % (0-9); NEUT # 7.7 x10^3/uL (1.8-7.7); NEUT % 78 % (31-73); PLATELET COUNT 156 x10^3/uL (140-400); RED BLOOD COUNT 4.61 x10^6/uL (4.30-5.70); WHITE BLOOD COUNT 9.9 x10^3/uL (4.0-11.0)
[2020-03-08 05:11] LABS: CALCIUM 8.4 mg/dL (8.5-10.1); CREATININE 0.8 mg/dL (0.7-1.3); GFR 97.6; POTASSIUM 3.8 mmol/L (3.5-5.1)
[2020-03-08 05:16] LABS: CHOLESTEROL/HDL RATIO 2.1
[2020-03-08] MEDS: IV NORMAL SALINE 1000ML BAG 1,000 ML IV SCH ×3 (05:22→21:23)
[2020-03-08] MEDS: ASPIRIN ENTERIC COATED 325 MG TABLET.DR. PO SCH (08:01)
--- NOTE | 2020-03-08 08:33 | PDOC ---
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 No cognitive deficits on bedside examination. 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 Plan Needs inpatient rehab, no insurance Rehabilitation modalities Can go to [facility] Aspirin, he is dorene to aspirin. Lipids fine, still starting statin Neurology will see as needed this weekend Objective Vital Signs Date Time Temp Pulse Resp B/P (MAP) Pulse Ox O2 Delivery O2 Flow Rate FiO2 03/08/20 06:25 98.3 70 16 120/62 (81) 96 Room Air 98.3 03/08/20 05:08 96.0 Intake and Output 03/08/20 07:00 Intake Total 1681 ml Output Total 750 ml Balance 931 ml Intake Oral 720 ml IV Total 961 ml Output Urine Total 750 ml # Bowel Movements 1 PHYSICAL EXAM Physical Exam: Alert. Oriented to time, place and person. Speaks Telugu PERRL. EOMI. CN: mild right central facial weakness. Muscle tone: normal. Muscle strength: 3/5 right hemiparesis DTR: 2+ Plantar reflex: flexor Gait: not examined in bed. Sensory exam: no abnormal findings. No cerebellar signs elicited. Review of Relevant I have reviewed the following items jessica (where applicable) has been applied. Labs Laboratory Tests Test 03/07/20 09:14 03/07/20 09:20 03/07/20 11:14 03/08/20 04:30 Glucose (Fingerstick) 112 mg/dL (70-99) White Blood Count 12.4 x10^3/uL (4.0-11.0) 9.9 x10^3/uL (4.0-11.0) Red Blood Count 4.99 x10^6/uL (4.30-5.70) 4.61 x10^6/uL (4.30-5.70) Hemoglobin 15.5 g/dL (13.0-17.5) 14.1 g/dL (13.0-17.5) Hematocrit 44.7 % (39.0-53.0) 41.3 % (39.0-53.0) Mean Corpuscular Volume 90 fL (79-100) 90 fL (79-100) Mean Corpuscular Hemoglobin 31 pg (25-35) 31 pg (25-35) Mean Corpuscular Hemoglobin Concent 35 g/dL (31-37) 34 g/dL (31-37) Red Cell Distribution Width 14.5 % (11.5-14.5) 14.0 % (11.5-14.5) Platelet Count 178 x10^3/uL (140-400) 156 x10^3/uL (140-400) Neutrophils (%) (Auto) 85 % (31-73) 78 % (31-73) Lymphocytes (%) (Auto) 8 % (24-48) 10 % (24-48) Monocytes (%) (Auto) 8 % (0-9) 10 % (0-9) Eosinophils (%) (Auto) 0 % (0-3) 1 % (0-3) Basophils (%) (Auto) 0 % (0-3) 1 % (0-3) Neutrophils # (Auto) 10.5 x10^3/uL (1.8-7.7) 7.7 x10^3/uL (1.8-7.7) Lymphocytes # (Auto) 0.9 x10^3/uL (1.0-4.8) 1.0 x10^3/uL (1.0-4.8) Monocytes # (Auto) 0.9 x10^3/uL (0.0-1.1) 1.0 x10^3/uL (0.0-1.1) Eosinophils # (Auto) 0.0 x10^3/uL (0.0-0.7) 0.1 x10^3/uL (0.0-0.7) Basophils # (Auto) 0.1 x10^3/uL (0.0-0.2) 0.0 x10^3/uL (0.0-0.2) Prothrombin Time 14.0 SEC (11.7-14.0) Prothromb Time International Ratio 1.1 (0.8-1.1) Activated Partial Thromboplast Time 33 SEC (24-38) Sodium Level 145 mmol/L (136-145) 145 mmol/L (136-145) Potassium Level 4.1 mmol/L (3.5-5.1) 3.8 mmol/L (3.5-5.1) Chloride Level 106 mmol/L (98-107) 110 mmol/L (98-107) Carbon Dioxide Level 22 mmol/L (21-32) 25 mmol/L (21-32) Anion Gap 17 (6-14) 10 (6-14) Blood Urea Nitrogen 36 mg/dL (8-26) 28 mg/dL (8-26) Creatinine 0.9 mg/dL (0.7-1.3) 0.8 mg/dL (0.7-1.3) Estimated GFR (Cockcroft-Gault) 85.2 97.6 BUN/Creatinine Ratio 40 (6-20) Glucose Level 110 mg/dL (70-99) 113 mg/dL (70-99) Calcium Level 9.1 mg/dL (8.5-10.1) 8.4 mg/dL (8.5-10.1) Magnesium Level 2.2 mg/dL (1.8-2.4) Total Bilirubin 1.6 mg/dL (0.2-1.0) Aspartate Amino Transf (AST/SGOT) 28 U/L (15-37) Alanine Aminotransferase (ALT/SGPT) 37 U/L (16-63) Alkaline Phosphatase 97 U/L (46-116) Troponin I Quantitative < 0.017 ng/mL (0.000-0.055) Total Protein 7.6 g/dL (6.4-8.2) Albumin 4.1 g/dL (3.4-5.0) Albumin/Globulin Ratio 1.2 (1.0-1.7) Urine Collection Type Unknown Urine Color Pushpa Urine Clarity Clear Urine pH 5.5 (<5.0-8.0) Urine Specific Clarence >=1.030 (1.000-1.030) Urine Protein 30 mg/dL (NEG-TRACE) Urine Glucose (UA) Negative mg/dL (NEG) Urine Ketones (Stick) >=80 mg/dL (NEG) Urine Blood Negative (NEG) Urine Nitrite Negative (NEG) Urine Bilirubin Small (NEG) Urine Urobilinogen Dipstick 0.2 mg/dL (0.2 mg/dL) Urine Leukocyte Esterase Negative (NEG) Urine RBC 0 /HPF (0-2) Urine WBC 0 /HPF (0-4) Urine Squamous Epithelial Cells Mod /LPF Urine Bacteria 0 /HPF (0-FEW) Urine Mucus Mod /LPF Triglycerides Level 64 mg/dL (0-150) Cholesterol Level 140 mg/dL (0-200) LDL Cholesterol, Calculated 60 mg/dL (0-100) VLDL Cholesterol, Calculated 13 mg/dL (0-40) Non-HDL Cholesterol Calculated 73 mg/dL (0-129) HDL Cholesterol 67 mg/dL (40-60) Cholesterol/HDL Ratio 2.1 Laboratory Tests Test 03/07/20 09:14 03/07/20 09:20 03/07/20 11:14 03/08/20 04:30 Glucose (Fingerstick) 112 mg/dL (70-99) White Blood Count 12.4 x10^3/uL (4.0-11.0) 9.9 x10^3/uL (4.0-11.0) Red Blood Count 4.99 x10^6/uL (4.30-5.70) 4.61 x10^6/uL (4.30-5.70) Hemoglobin 15.5 g/dL (13.0-17.5) 14.1 g/dL (13.0-17.5) Hematocrit 44.7 % (39.0-53.0) 41.3 % (39.0-53.0) Mean Corpuscular Volume 90 fL (79-100) 90 fL (79-100) Mean Corpuscular Hemoglobin 31 pg (25-35) 31 pg (25-35) Mean Corpuscular Hemoglobin Concent 35 g/dL (31-37) 34 g/dL (31-37) Red Cell Distribution Width 14.5 % (11.5-14.5) 14.0 % (11.5-14.5) Platelet Count 178 x10^3/uL (140-400) 156 x10^3/uL (140-400) Neutrophils (%) (Auto) 85 % (31-73) 78 % (31-73) Lymphocytes (%) (Auto) 8 % (24-48) 10 % (24-48) Monocytes (%) (Auto) 8 % (0-9) 10 % (0-9) Eosinophils (%) (Auto) 0 % (0-3) 1 % (0-3) Basophils (%) (Auto) 0 % (0-3) 1 % (0-3) Neutrophils # (Auto) 10.5 x10^3/uL (1.8-7.7) 7.7 x10^3/uL (1.8-7.7) Lymphocytes # (Auto) 0.9 x10^3/uL (1.0-4.8) 1.0 x10^3/uL (1.0-4.8) Monocytes # (Auto) 0.9 x10^3/uL (0.0-1.1) 1.0 x10^3/uL (0.0-1.1) Eosinophils # (Auto) 0.0 x10^3/uL (0.0-0.7) 0.1 x10^3/uL (0.0-0.7) Basophils # (Auto) 0.1 x10^3/uL (0.0-0.2) 0.0 x10^3/uL (0.0-0.2) Prothrombin Time 14.0 SEC (11.7-14.0) Prothromb Time International Ratio 1.1 (0.8-1.1) Activated Partial Thromboplast Time 33 SEC (24-38) Sodium Level 145 mmol/L (136-145) 145 mmol/L (136-145) Potassium Level 4.1 mmol/L (3.5-5.1) 3.8 mmol/L (3.5-5.1) Chloride Level 106 mmol/L (98-107) 110 mmol/L (98-107) Carbon Dioxide Level 22 mmol/L (21-32) 25 mmol/L (21-32) Anion Gap 17 (6-14) 10 (6-14) Blood Urea Nitrogen 36 mg/dL (8-26) 28 mg/dL (8-26) Creatinine 0.9 mg/dL (0.7-1.3) 0.8 mg/dL (0.7-1.3) Estimated GFR (Cockcroft-Gault) 85.2 97.6 BUN/Creatinine Ratio 40 (6-20) Glucose Level 110 mg/dL (70-99) 113 mg/dL (70-99) Calcium Level 9.1 mg/dL (8.5-10.1) 8.4 mg/dL (8.5-10.1) Magnesium Level 2.2 mg/dL (1.8-2.4) Total Bilirubin 1.6 mg/dL (0.2-1.0) Aspartate Amino Transf (AST/SGOT) 28 U/L (15-37) Alanine Aminotransferase (ALT/SGPT) 37 U/L (16-63) Alkaline Phosphatase 97 U/L (46-116) Troponin I Quantitative < 0.017 ng/mL (0.000-0.055) Total Protein 7.6 g/dL (6.4-8.2) Albumin 4.1 g/dL (3.4-5.0) Albumin/Globulin Ratio 1.2 (1.0-1.7) Urine Collection Type Unknown Urine Color Pushpa Urine Clarity Clear Urine pH 5.5 (<5.0-8.0) Urine Specific Clarence >=1.030 (1.000-1.030) Urine Protein 30 mg/dL (NEG-TRACE) Urine Glucose (UA) Negative mg/dL (NEG) Urine Ketones (Stick) >=80 mg/dL (NEG) Urine Blood Negative (NEG) Urine Nitrite Negative (NEG) Urine Bilirubin Small (NEG) Urine Urobilinogen Dipstick 0.2 mg/dL (0.2 mg/dL) Urine Leukocyte Esterase Negative (NEG) Urine RBC 0 /HPF (0-2) Urine WBC 0 /HPF (0-4) Urine Squamous Epithelial Cells Mod /LPF Urine Bacteria 0 /HPF (0-FEW) Urine Mucus Mod /LPF Triglycerides Level 64 mg/dL (0-150) Cholesterol Level 140 mg/dL (0-200) LDL Cholesterol, Calculated 60 mg/dL (0-100) VLDL Cholesterol, Calculated 13 mg/dL (0-40) Non-HDL Cholesterol Calculated 73 mg/dL (0-129) HDL Cholesterol 67 mg/dL (40-60) Cholesterol/HDL Ratio 2.1 Medications Current Medications Simvastatin (Zocor) 10 mg QHS PO Last administered on 03/07/20at 21:27; Start 03/07/20 at 21:00 Acetaminophen (Tylenol) 650 mg PRN Q6HRS PRN PO TEMP > 100.4F; Start 03/07/20 at 13:30 Acetaminophen (Tylenol Supp) [address] PRN CT TEMP > 100.4F; Start 03/07/20 at 13:30 Aspirin (Ecotrin) 325 mg DAILYWBKFT PO Last administered on 03/08/20at 08:01; Start 03/08/20 at 08:00 Aspirin (Aspirin Rectal Supp) [address] IF UNABLE TO TAKE PO; Start 03/07/20 at 13:30 Sodium Chloride (Normal Saline Flush) 3 ml QSHIFT PRN IV AFTER MEDS AND BLOOD DRAWS; Start 03/07/20 at 16:15 Sodium Chloride 1,000 ml @ 100 mls/hr Q10H IV Last administered on 03/08/20at 05:22; Start 03/07/20 at 16:03 Ondansetron HCl (Zofran) 4 mg PRN Q4HRS PRN IV NAUSEA/VOMITING; Start 03/07/20 at 16:15 Acetaminophen (Tylenol) 650 mg PRN Q4HRS PRN PO TEMP OVER 100.4F OR MILD PAIN; Start 03/07/20 at 16:15 Acetaminophen (Tylenol Supp) [address] TEMP OVER 100.4F OR MILD PAIN; Start 03/07/20 at 16:15 Clonidine HCl (Catapres) 0.1 mg PRN Q6HRS PRN PO SBP>160 OR DBP>90; Start 03/07/20 at 16:15 Docusate Sodium (Colace) 100 mg PRN BID PRN PO HARD STOOLS; Start 03/07/20 at 16:15 Albuterol Sulfate (Ventolin Neb Soln) 2.5 mg PRN Q4HRS PRN NEB SHORTNESS OF BREATH; Start 03/07/20 at 16:15 Guaifenesin (Robitussin) 200 mg PRN Q4HRS PRN PO COUGH; Start 03/07/20 at 16:15 Lorazepam (Ativan) 0.5 mg PRN Q4HRS PRN PO ANXIETY / AGITATION; Start 03/07/20 at 16:15 Enoxaparin Sodium (Lovenox 40mg Syringe) 40 mg Q24H SQ Last administered on 03/07/20at 19:21; Start 03/07/20 at 17:00 Active Scripts Active Reported Naproxen 375 Mg Tablet 1 Tab PO BID Vitals/I & O Vital Sign - Last 24 Hours 03/07/20 03/07/20 03/07/20 03/07/20 09:06 09:14 09:29 09:44 Temp 98.5 98.5 Pulse 91 88 88 88 Resp 20 B/P (MAP) 173/76 (108) 171/82 (111) 153/81 (105) 173/76 (108) Pulse Ox 97 100 100 97 O2 Delivery Room Air Room Air Room Air Room Air 03/07/20 03/07/20 03/07/20 03/07/20 09:59 10:14 10:15 10:29 Pulse 84 86 84 84 B/P (MAP) 169/83 (111) 169/74 (105) 160/77 (104) 137/74 (95) Pulse Ox 97 98 95 97 O2 Delivery Room Air Room Air Room Air Room Air 03/07/20 03/07/20 03/07/20 03/07/20 10:44 11:14 11:44 12:14 Pulse 82 82 84 82 B/P (MAP) 160/76 (104) 153/77 (102) 155/76 (102) 155/78 (103) Pulse Ox 98 100 96 98 O2 Delivery Room Air Room Air Room Air Room Air 03/07/20 03/07/20 03/07/20 03/07/20 12:44 13:14 13:44 14:14 Pulse 84 84 82 78 B/P (MAP) 157/77 (103) 157/75 (102) 159/74 (102) 156/72 (100) Pulse Ox 95 98 97 96 O2 Delivery Room Air Room Air Room Air Room Air 03/07/20 03/07/20 03/07/20 03/07/20 14:14 14:53 15:10 19:10 Temp 98.3 98.1 98.3 98.1 Pulse 78 78 78 Resp 18 16 B/P (MAP) 156/72 (100) 142/76 (98) 153/74 (100) Pulse Ox 96 98 95 O2 Delivery Room Air Room Air Room Air Room Air 03/07/20 03/07/20 03/08/20 03/08/20 19:11 22:36 00:00 01:11 Temp 99.2 99.2 Pulse 73 Resp 18 B/P (MAP) 127/92 (104) Pulse Ox 99 O2 Delivery Room Air Room Air Room Air Room Air 03/08/20 03/08/20 03/08/20 03/08/20 02:14 03:00 04:11 04:11 Temp 98.7 98.7 98.3 98.7 98.7 98.3 Pulse 81 68 68 Resp 18 B/P (MAP) 127/66 (86) 124/68 (86) 111/62 (78) Pulse Ox 95 96 O2 Delivery Room Air Room Air Room Air 03/08/20 03/08/20 05:08 06:25 Temp 98.3 98.3 Pulse 66 70 Resp 16 B/P (MAP) 125/64 (84) 120/62 (81) Pulse Ox 96 O2 Delivery Room Air O2 Flow Rate 96.0 Intake and Output 03/07/20 03/07/20 03/08/20 15:00 23:00 07:00 Intake Total 720 ml 961 ml Output Total 250 ml 500 ml Balance 470 ml 461 ml Images BRAIN W/O CONTRAST History:Reason: left basal ganglia infarct, neurofibromatosis*CALL [facility] [phone] [facility] / [facility]. Instructions: / History: Technique: Multiplanar, multi sequential MR imaging was performed of the brain without contrast. Comparison: CT March 07, 2020 Findings: Acute left garcia radiata/lentiform nucleus infarct. Increased gradient hypointensity within the infarct, may indicate petechial hemorrhage No additional acute infarct. No acute intracranial hemorrhage. No mass effect. No hydrocephalus. Chronic right cerebellar infarct. Mild foci of FLAIR hyperintensity within the hemispheric white matter, within normal range for age. Imaged orbits are unremarkable. Imaged paranasal sinuses and mastoid air cells are clear. Diffuse cutaneous nodules compatible with history of neurofibromatosis. Impression: 1. Acute left garcia radiata/lentiform nucleus infarct with petechial hemorrhage. 2. Small chronic right cerebellar lacunar infarct. Carotids: Right side: Peak systolic flow velocity of the CCA is 85 cm/sec. Peak systolic flow velocity of the ICA is 87 cm/sec. The ICA/CCA ratio is 1.02. Peak end diastolic flow velocity of the ICA is 28 cm/sec. The peak systolic velocity of the ECA is 87 cm/sec. Mild atheromatous plaque. Left side: Peak systolic flow velocity of the CCA is 86 cm/sec. Peak systolic flow velocity of the ICA is 83 cm/sec. The ICA/CCA ratio is 0.96. Peak end diastolic flow velocity of the ICA is 25 cm/sec. Peak systolic flow velocity of the ECA is 88 cm/sec. Mild atheromatous plaque. Vertebral arteries: Bilateral vertebral arteries demonstrate antegrade flow. IMPRESSION: 1. No hemodynamically significant internal carotid artery stenosis. 2. Mild atheromatous plaque bilaterally. Echo: LEFT VENTRICLE The left ventricle is normal size. There is normal left ventricular wall thi ckness. The left ventricular systolic function is normal and the ejection fraction is within normal range. The Ejection Fraction is 55-60%. There is normal LV segmental wall motion. Transmitral Doppler flow pattern is Grade I- abnormal relaxation pattern. RIGHT VENTRICLE The right ventricle is normal size. The right ventricular systolic function is normal. ATRIA The left atrium size is normal. The right atrium size is normal. The interatrial septum is intact with no evidence for an atrial septal defect or patent foramen ovale as noted on 2-D or Doppler imaging. Injection of bubbles documented no obvious interatrial shunt. If there is high suspicion for interatrial shunt, consider SETH. AORTIC VALVE The aortic valve is calcified but opens well. Doppler and Color Flow revealed no significant aortic regurgitation. There is no significant aortic valvular stenosis. MITRAL VALVE The mitral valve is normal in structure and function. There is no evidence of mitral valve prolapse. There is no mitral valve stenosis. Doppler and Color-flow revealed trace to mild mitral regurgitation. TRICUSPID VALVE The tricuspid valve is normal in structure and function. Doppler and Color Flow revealed physiological tricuspid regurgitation. The PA pressure was estimated at 23 mmHg. There is no tricuspid valve stenosis. PULMONIC VALVE The pulmonic valve is not well visualized. Doppler and Color Flow revealed no pulmonic valvular regurgitation. There is no pulmonic valvular stenosis. GREAT VESSELS The aortic root is normal in size. The ascending aorta is not well seen. The IVC is normal in size and collapses >50% with inspiration. PERICARDIAL EFFUSION There is no evidence of significant pericardial effusion. Critical Notification Critical Value: No <Conclusion> The left ventricular systolic function is normal and the ejection fraction is within normal range. The Ejection Fraction is 55-60%. There is normal LV segmental wall motion. Injection of bubbles documented no obvious interatrial shunt. If there is high suspicion for interatrial shunt, consider SETH. Justicifation of Admission Dx: Justifications for Admission: Justification of Admission Dx: Yes Stroke - Ischemic: Stroke-Ischemic SHAE JEAN BAPTISTE MD Mar 08, 2020 08:33
--- NOTE | 2020-03-08 10:07 | PDOC ---
PROGRESS NOTES History of Present Illness History of Present Illness IMPRESSION: 1. 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 2. No intracranial hemorrhage. VTE Prophylaxis Ordered VTE Prophylaxis Devices: Yes VTE Pharmacological Prophylaxi: Yes Assessment/Plan Assessment/Plan IMPRESSION: 1. 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 POA // date of event 03/06 2. No intracranial hemorrhage. 3. Neurofibromatosis. plan admit NEUROLOGY CONSULT PT/OT MRI HEAD DOPPLER CAROTIDS ICU BED echo 33 MIN CC TIME Justicifation of Admission Dx: Justifications for Admission: Justification of Admission Dx: Yes Stroke - Ischemic: Stroke-Ischemic Comments: ACUTE CVA IN NEED OF INPATIENT CARE KINSEY PERDOMO MD Mar 07, 2020 10:51 Addendum: KINSEY PERDOMO MD on 03/07/20 @ 16:03 PATHOLOGY REPORT * * * * * * * * FINAL DIAGNOSIS: A. Segments (2) of skin, right ear mass: - Neurofibroma. B. Skin and subcutaneous tissue, right scalp lesion: - Neurofibroma. C. Fibroadipose tissue, posterior head mass: - Plexiform neurofibroma. D. Segments (2) of skin and subcutaneous tissue, right proximal neck mass: - Neurofibromas, multiple. E. Skin and subcutaneous tissue, left proximal neck mass: - Neurofibromas, multiple. COMMENT: There is extensive margin involvement of the right ear neurofibroma. There is focal margin involvement of the right scalp neurofibroma. Sections of the posterior head mass reveal a plexiform neurofibroma. Sections of the proximal neck mass reveal multiple neurofibromas showing focal margin involvement. Sections of the left proximal neck mass reveal multiple neurofibromas showing focal margin involvement. (JPM:lluvia; d/t: 03/07/2015) Addendum: KINSEY PERDOMO MD on 03/07/20 @ 16:06 Risk Factors * slurred speech * facial drooping Screening complete * SWALLOWING NOT INTACT Vitals Vitals Vital Signs Date Time Temp Pulse Resp B/P (MAP) Pulse Ox O2 Delivery O2 Flow Rate FiO2 03/08/20 09:00 70 16 132/70 (90) 97 Room Air 03/08/20 08:00 98.7 98.7 03/08/20 05:08 96.0 Physical Exam Physical Exam RIGHT FACIAL WEAKNESS General: Alert, Oriented X3, Cooperative, No acute distress Heart: Regular rate Abdomen: Normal bowel sounds, Soft, No tenderness Extremities: No cyanosis Labs LABS APPROVED REPORT EXAM: Two-dimensional and M-mode echocardiogram with Doppler and color Doppler. Other Information Quality : Good Technically limited study due to body habitus. INDICATION CVA/TIA Echo Enhancing Agent Agent/Amount Used: Agitated Saline 16mL 2D DIMENSIONS Left Atrium(2D) 2.6 (1.6-4.0cm) IVSd 1.3 (0.7-1.1cm) Aortic Root(2D) 2.9 (2.0-3.7cm) LVDd 4.0 (3.9-5.9cm) LVOT Diameter 1.9 (1.8-2.4cm) PWd 1.3 (0.7-1.1cm) LVDs 2.7 (2.5-4.0cm) FS (%) 32.4 % SV 42.8 ml LVEF(%) 61.3 (>50%) Aortic Valve AoV Peak Alex. 124.4cm/s AoV VTI 21.2cm AO Peak GR. 6.2mmHg LVOT VTI 21.45cm AO Mean GR. 4mmHg BINTA (VTI) 2.90cm2 Mitral Valve MV E Velocity 66.8cm/s MV DECEL TIME 149ms MV A Velocity 96.3cm/s E/A Ratio 0.7 TDI Lateral E' P. V 8.82cm/s Medial E' P. V 6.11cm/s E/Lateral E' 7.6 E/Medial E' 10.9 Tricuspid Valve TR P. Velocity 226cm/s RAP ESTIMATE 3mmHg TR Peak Gr. 20mmHg RVSP 23mmHg LEFT VENTRICLE The left ventricle is normal size. There is normal left ventricular wall thickness. The left ventricular systolic function is normal and the ejection fra ction is within normal range. The Ejection Fraction is 55-60%. There is normal LV segmental wall motion. Transmitral Doppler flow pattern is Grade I-abnormal relaxation pattern. RIGHT VENTRICLE The right ventricle is normal size. The right ventricular systolic function is normal. ATRIA The left atrium size is normal. The right atrium size is normal. The interatrial septum is intact with no evidence for an atrial septal defect or patent foramen ovale as noted on 2-D or Doppler imaging. Injection of bubbles documented no obvious interatrial shunt. If there is high suspicion for interatrial shunt, consider SETH. AORTIC VALVE The aortic valve is calcified but opens well. Doppler and Color Flow revealed no significant aortic regurgitation. There is no significant aortic valvular stenosis. MITRAL VALVE The mitral valve is normal in structure and function. There is no evidence of mitral valve prolapse. There is no mitral valve stenosis. Doppler and Color-flow revealed trace to mild mitral regurgitation. TRICUSPID VALVE The tricuspid valve is normal in structure and function. Doppler and Color Flow revealed physiological tricuspid regurgitation. The PA pressure was estimated at 23 mmHg. There is no tricuspid valve stenosis. PULMONIC VALVE The pulmonic valve is not well visualized. Doppler and Color Flow revealed no pulmonic valvular regurgitation. There is no pulmonic valvular stenosis. GREAT VESSELS The aortic root is normal in size. The ascending aorta is not well seen. The IVC is normal in size and collapses >50% with inspiration. PERICARDIAL EFFUSION There is no evidence of significant pericardial effusion. Critical Notification Critical Value: No <Conclusion> The left ventricular systolic function is normal and the ejection fraction is within normal range. The Ejection Fraction is 55-60%. There is normal LV segmental wall motion. Injection of bubbles documented no obvious interatrial shunt. If there is high suspicion for interatrial shunt, consider SETH. Signed by : Billie Knott, Electronically Approved : 03/07/2020 16:19:44 DICTATED and SIGNED BY: BILLIE KNOTT MD DATE: 03/07/20 1554 BRAIN W/O CONTRAST History:Reason: left basal ganglia infarct, neurofibromatosis*CALL [facility] EM[facility]PART[facility] [phone] [facility] / [facility]. Instructions: / History: Technique: Multiplanar, multi sequential MR imaging was performed of the brain without contrast. Comparison: CT March 07, 2020 Findings: Acute left garcia radiata/lentiform nucleus infarct. Increased gradient hypointensity within the infarct, may indicate petechial hemorrhage No additional acute infarct. No acute intracranial hemorrhage. No mass effect. No hydrocephalus. Chronic right cerebellar infarct. Mild foci of FLAIR hyperintensity within the hemispheric white matter, within normal range for age. Imaged orbits are unremarkable. Imaged paranasal sinuses and mastoid air cells are clear. Diffuse cutaneous nodules compatible with history of neurofibromatosis. Impression: 1. Acute left garcia radiata/lentiform nucleus infarct with petechial hemorrhage. 2. Small chronic right cerebellar lacunar infarct. Electronically signed by: Sang Jones DO (03/07/2020 7:02 PM) [facility] DICTATED and SIGNED BY: SANG JONES DO DATE: 03/07/201901 DOPPLER CAROTID BILAT History: Reason: CVA / Spl. Instructions: / History: COMPARISON: None Technique: Duplex sonography of the cervical portion of both carotid arteries was performed. Real-time grayscale, color flow Doppler, and Doppler spectral waveform analysis is performed. RS Compliance Statement - Stenosis calculations for CT, MR and conventional angiography are based upon measurement of the distal ICA diameter in accordance with the NASCET methodology. Stenosis calculations for carotid ultrasound studies are derived from validated velocity criteria which are known to correlate with the NASCET methodology. Findings: Right side: Peak systolic flow velocity of the CCA is 85 cm/sec. Peak systolic flow velocity of the ICA is 87 cm/sec. The ICA/CCA ratio is 1.02. Peak end diastolic flow velocity of the ICA is 28 cm/sec. The peak systolic velocity of the ECA is 87 cm/sec. Mild atheromatous plaque. Left side: Peak systolic flow velocity of the CCA is 86 cm/sec. Peak systolic flow velocity of the ICA is 83 cm/sec. The ICA/CCA ratio is 0.96. Peak end diastolic flow velocity of the ICA is 25 cm/sec. Peak systolic flow velocity of the ECA is 88 cm/sec. Mild atheromatous plaque. Vertebral arteries: Bilateral vertebral arteries demonstrate antegrade flow. IMPRESSION: 1. No hemodynamically significant internal carotid artery stenosis. 2. Mild atheromatous plaque bilaterally. Electronically signed by: Sang Jones DO (03/07/2020 7:17 PM) [facility] Laboratory Tests Test 03/07/20 11:14 03/08/20 04:30 Urine Collection Type Unknown Urine Color Pushpa Urine Clarity Clear Urine pH 5.5 (<5.0-8.0) Urine Specific [place] >=1.030 (1.000-1.030) Urine Protein 30 mg/dL (NEG-TRACE) Urine Glucose (UA) Negative mg/dL (NEG) Urine Ketones (Stick) >=80 mg/dL (NEG) Urine Blood Negative (NEG) Urine Nitrite Negative (NEG) Urine Bilirubin Small (NEG) Urine Urobilinogen Dipstick 0.2 mg/dL (0.2 mg/dL) Urine Leukocyte Esterase Negative (NEG) Urine RBC 0 /HPF (0-2) Urine WBC 0 /HPF (0-4) Urine Squamous Epithelial Cells Mod /LPF Urine Bacteria 0 /HPF (0-FEW) Urine Mucus Mod /LPF White Blood Count 9.9 x10^3/uL (4.0-11.0) Red Blood Count 4.61 x10^6/uL (4.30-5.70) Hemoglobin 14.1 g/dL (13.0-17.5) Hematocrit 41.3 % (39.0-53.0) Mean Corpuscular Volume 90 fL (79-100) Mean Corpuscular Hemoglobin 31 pg (25-35) Mean Corpuscular Hemoglobin Concent 34 g/dL (31-37) Red Cell Distribution Width 14.0 % (11.5-14.5) Platelet Count 156 x10^3/uL (140-400) Neutrophils (%) (Auto) 78 % (31-73) Lymphocytes (%) (Auto) 10 % (24-48) Monocytes (%) (Auto) 10 % (0-9) Eosinophils (%) (Auto) 1 % (0-3) Basophils (%) (Auto) 1 % (0-3) Neutrophils # (Auto) 7.7 x10^3/uL (1.8-7.7) Lymphocytes # (Auto) 1.0 x10^3/uL (1.0-4.8) Monocytes # (Auto) 1.0 x10^3/uL (0.0-1.1) Eosinophils # (Auto) 0.1 x10^3/uL (0.0-0.7) Basophils # (Auto) 0.0 x10^3/uL (0.0-0.2) Sodium Level 145 mmol/L (136-145) Potassium Level 3.8 mmol/L (3.5-5.1) Chloride Level 110 mmol/L (98-107) Carbon Dioxide Level 25 mmol/L (21-32) Anion Gap 10 (6-14) Blood Urea Nitrogen 28 mg/dL (8-26) Creatinine 0.8 mg/dL (0.7-1.3) Estimated GFR (Cockcroft-Gault) 97.6 Glucose Level 113 mg/dL (70-99) Calcium Level 8.4 mg/dL (8.5-10.1) Triglycerides Level 64 mg/dL (0-150) Cholesterol Level 140 mg/dL (0-200) LDL Cholesterol, Calculated 60 mg/dL (0-100) VLDL Cholesterol, Calculated 13 mg/dL (0-40) Non-HDL Cholesterol Calculated 73 mg/dL (0-129) HDL Cholesterol 67 mg/dL (40-60) Cholesterol/HDL Ratio 2.1 Comment Review of Relevant I have reviewed the following items jessica (where applicable) has been applied. Labs Laboratory Tests Test 03/07/20 09:14 03/07/20 09:20 03/07/20 11:14 03/08/20 04:30 Glucose (Fingerstick) 112 mg/dL (70-99) White Blood Count 12.4 x10^3/uL (4.0-11.0) 9.9 x10^3/uL (4.0-11.0) Red Blood Count 4.99 x10^6/uL (4.30-5.70) 4.61 x10^6/uL (4.30-5.70) Hemoglobin 15.5 g/dL (13.0-17.5) 14.1 g/dL (13.0-17.5) Hematocrit 44.7 % (39.0-53.0) 41.3 % (39.0-53.0) Mean Corpuscular Volume 90 fL (79-100) 90 fL (79-100) Mean Corpuscular Hemoglobin 31 pg (25-35) 31 pg (25-35) Mean Corpuscular Hemoglobin Concent 35 g/dL (31-37) 34 g/dL (31-37) Red Cell Distribution Width 14.5 % (11.5-14.5) 14.0 % (11.5-14.5) Platelet Count 178 x10^3/uL (140-400) 156 x10^3/uL (140-400) Neutrophils (%) (Auto) 85 % (31-73) 78 % (31-73) Lymphocytes (%) (Auto) 8 % (24-48) 10 % (24-48) Monocytes (%) (Auto) 8 % (0-9) 10 % (0-9) Eosinophils (%) (Auto) 0 % (0-3) 1 % (0-3) Basophils (%) (Auto) 0 % (0-3) 1 % (0-3) Neutrophils # (Auto) 10.5 x10^3/uL (1.8-7.7) 7.7 x10^3/uL (1.8-7.7) Lymphocytes # (Auto) 0.9 x10^3/uL (1.0-4.8) 1.0 x10^3/uL (1.0-4.8) Monocytes # (Auto) 0.9 x10^3/uL (0.0-1.1) 1.0 x10^3/uL (0.0-1.1) Eosinophils # (Auto) 0.0 x10^3/uL (0.0-0.7) 0.1 x10^3/uL (0.0-0.7) Basophils # (Auto) 0.1 x10^3/uL (0.0-0.2) 0.0 x10^3/uL (0.0-0.2) Prothrombin Time 14.0 SEC (11.7-14.0) Prothromb Time International Ratio 1.1 (0.8-1.1) Activated Partial Thromboplast Time 33 SEC (24-38) Sodium Level 145 mmol/L (136-145) 145 mmol/L (136-145) Potassium Level 4.1 mmol/L (3.5-5.1) 3.8 mmol/L (3.5-5.1) Chloride Level 106 mmol/L (98-107) 110 mmol/L (98-107) Carbon Dioxide Level 22 mmol/L (21-32) 25 mmol/L (21-32) Anion Gap 17 (6-14) 10 (6-14) Blood Urea Nitrogen 36 mg/dL (8-26) 28 mg/dL (8-26) Creatinine 0.9 mg/dL (0.7-1.3) 0.8 mg/dL (0.7-1.3) Estimated GFR (Cockcroft-Gault) 85.2 97.6 BUN/Creatinine Ratio 40 (6-20) Glucose Level 110 mg/dL (70-99) 113 mg/dL (70-99) Calcium Level 9.1 mg/dL (8.5-10.1) 8.4 mg/dL (8.5-10.1) Magnesium Level 2.2 mg/dL (1.8-2.4) Total Bilirubin 1.6 mg/dL (0.2-1.0) Aspartate Amino Transf (AST/SGOT) 28 U/L (15-37) Alanine Aminotransferase (ALT/SGPT) 37 U/L (16-63) Alkaline Phosphatase 97 U/L (46-116) Troponin I Quantitative < 0.017 ng/mL (0.000-0.055) Total Protein 7.6 g/dL (6.4-8.2) Albumin 4.1 g/dL (3.4-5.0) Albumin/Globulin Ratio 1.2 (1.0-1.7) Urine Collection Type Unknown Urine Color Pushpa Urine Clarity Clear Urine pH 5.5 (<5.0-8.0) Urine Specific [place] >=1.030 (1.000-1.030) Urine Protein 30 mg/dL (NEG-TRACE) Urine Glucose (UA) Negative mg/dL (NEG) Urine Ketones (Stick) >=80 mg/dL (NEG) Urine Blood Negative (NEG) Urine Nitrite Negative (NEG) Urine Bilirubin Small (NEG) Urine Urobilinogen Dipstick 0.2 mg/dL (0.2 mg/dL) Urine Leukocyte Esterase Negative (NEG) Urine RBC 0 /HPF (0-2) Urine WBC 0 /HPF (0-4) Urine Squamous Epithelial Cells Mod /LPF Urine Bacteria 0 /HPF (0-FEW) Urine Mucus Mod /LPF Triglycerides Level 64 mg/dL (0-150) Cholesterol Level 140 mg/dL (0-200) LDL Cholesterol, Calculated 60 mg/dL (0-100) VLDL Cholesterol, Calculated 13 mg/dL (0-40) Non-HDL Cholesterol Calculated 73 mg/dL (0-129) HDL Cholesterol 67 mg/dL (40-60) Cholesterol/HDL Ratio 2.1 Laboratory Tests Test 03/07/20 11:14 03/08/20 04:30 Urine Collection Type Unknown Urine Color Pushpa Urine Clarity Clear Urine pH 5.5 (<5.0-8.0) Urine Specific [place] >=1.030 (1.000-1.030) Urine Protein 30 mg/dL (NEG-TRACE) Urine Glucose (UA) Negative mg/dL (NEG) Urine Ketones (Stick) >=80 mg/dL (NEG) Urine Blood Negative (NEG) Urine Nitrite Negative (NEG) Urine Bilirubin Small (NEG) Urine Urobilinogen Dipstick 0.2 mg/dL (0.2 mg/dL) Urine Leukocyte Esterase Negative (NEG) Urine RBC 0 /HPF (0-2) Urine WBC 0 /HPF (0-4) Urine Squamous Epithelial Cells Mod /LPF Urine Bacteria 0 /HPF (0-FEW) Urine Mucus Mod /LPF White Blood Count 9.9 x10^3/uL (4.0-11.0) Red Blood Count 4.61 x10^6/uL (4.30-5.70) Hemoglobin 14.1 g/dL (13.0-17.5) Hematocrit 41.3 % (39.0-53.0) Mean Corpuscular Volume 90 fL (79-100) Mean Corpuscular Hemoglobin 31 pg (25-35) Mean Corpuscular Hemoglobin Concent 34 g/dL (31-37) Red Cell Distribution Width 14.0 % (11.5-14.5) Platelet Count 156 x10^3/uL (140-400) Neutrophils (%) (Auto) 78 % (31-73) Lymphocytes (%) (Auto) 10 % (24-48) Monocytes (%) (Auto) 10 % (0-9) Eosinophils (%) (Auto) 1 % (0-3) Basophils (%) (Auto) 1 % (0-3) Neutrophils # (Auto) 7.7 x10^3/uL (1.8-7.7) Lymphocytes # (Auto) 1.0 x10^3/uL (1.0-4.8) Monocytes # (Auto) 1.0 x10^3/uL (0.0-1.1) Eosinophils # (Auto) 0.1 x10^3/uL (0.0-0.7) Basophils # (Auto) 0.0 x10^3/uL (0.0-0.2) Sodium Level 145 mmol/L (136-145) Potassium Level 3.8 mmol/L (3.5-5.1) Chloride Level 110 mmol/L (98-107) Carbon Dioxide Level 25 mmol/L (21-32) Anion Gap 10 (6-14) Blood Urea Nitrogen 28 mg/dL (8-26) Creatinine 0.8 mg/dL (0.7-1.3) Estimated GFR (Cockcroft-Gault) 97.6 Glucose Level 113 mg/dL (70-99) Calcium Level 8.4 mg/dL (8.5-10.1) Triglycerides Level 64 mg/dL (0-150) Cholesterol Level 140 mg/dL (0-200) LDL Cholesterol, Calculated 60 mg/dL (0-100) VLDL Cholesterol, Calculated 13 mg/dL (0-40) Non-HDL Cholesterol Calculated 73 mg/dL (0-129) HDL Cholesterol 67 mg/dL (40-60) Cholesterol/HDL Ratio 2.1 Medications Current Medications Simvastatin (Zocor) 10 mg QHS PO Last administered on 03/07/20at 21:27; Start 03/07/20 at 21:00 Acetaminophen (Tylenol) 650 mg PRN Q6HRS PRN PO TEMP > 100.4F; Start 03/07/20 at 13:30; Stop 03/08/20 at 09:19; Status DC Acetaminophen (Tylenol Supp) 650 mg PRN Q4HRS PRN [place] TEMP > 100.4F; Start 03/07/20 at 13:30; Stop 03/08/20 at 09:20; Status DC Aspirin (Ecotrin) 325 mg DAILYWBKFT PO Last administered on 03/08/20at 08:01; Start 03/08/20 at 08:00 Aspirin (Aspirin Rectal Supp) 300 mg PRN DAILY PRN NJ IF UNABLE TO TAKE PO; S tart 03/07/20 at 13:30 Sodium Chloride (Normal Saline Flush) 3 ml QSHIFT PRN IV AFTER MEDS AND BLOOD DRAWS; Start 03/07/20 at 16:15 Sodium Chloride 1,000 ml @ 100 mls/hr Q10H IV Last administered on 03/08/20at 05:22; Start 03/07/20 at 16:03 Ondansetron HCl (Zofran) 4 mg PRN Q4HRS PRN IV NAUSEA/VOMITING; Start 03/07/20 at 16:15 Acetaminophen (Tylenol) 650 mg PRN Q4HRS PRN PO TEMP OVER 100.4F OR MILD PAIN; Start 03/07/20 at 16:15 Acetaminophen (Tylenol Supp) 650 mg PRN Q4HRS PRN [place] TEMP OVER 100.4F OR MILD PAIN; Start 03/07/20 at 16:15 Clonidine HCl (Catapres) 0.1 mg PRN Q6HRS PRN PO SBP>160 OR DBP>90; Start 03/07/20 at 16:15 Docusate Sodium (Colace) 100 mg PRN BID PRN PO HARD STOOLS; Start 03/07/20 at 16:15 Albuterol Sulfate (Ventolin Neb Soln) 2.5 mg PRN Q4HRS PRN NEB SHORTNESS OF BREATH; Start 03/07/20 at 16:15 Guaifenesin (Robitussin) 200 mg PRN Q4HRS PRN PO COUGH; Start 03/07/20 at 16:15 Lorazepam (Ativan) 0.5 mg PRN Q4HRS PRN PO ANXIETY / AGITATION; Start 03/07/20 at 16:15 Enoxaparin Sodium (Lovenox 40mg Syringe) 40 mg Q24H SQ Last administered on 03/07/20at 19:21; Start 03/07/20 at 17:00 Active Scripts Active Reported Naproxen 375 Mg Tablet 1 Tab PO BID Vitals/I & O Vital Sign - Last 24 Hours 03/07/20 03/07/20 03/07/20 03/07/20 10:14 10:15 10:29 10:44 Pulse 86 84 84 82 B/P (MAP) 169/74 (105) 160/77 (104) 137/74 (95) 160/76 (104) Pulse Ox 98 95 97 98 O2 Delivery Room Air Room Air Room Air Room Air 03/07/20 03/07/20 03/07/20 03/07/20 11:14 11:44 12:14 12:44 Pulse 82 84 82 84 B/P (MAP) 153/77 (102) 155/76 (102) 155/78 (103) 157/77 (103) Pulse Ox 100 96 98 95 O2 Delivery Room Air Room Air Room Air Room Air 03/07/20 03/07/20 03/07/20 03/07/20 13:14 13:44 14:14 14:14 Pulse 84 82 78 78 B/P (MAP) 157/75 (102) 159/74 (102) 156/72 (100) 156/72 (100) Pulse Ox 98 97 96 96 O2 Delivery Room Air Room Air Room Air Room Air 03/07/20 03/07/20 03/07/20 03/07/20 14:53 15:10 19:10 19:11 Temp 98.3 98.1 98.3 98.1 Pulse 78 78 Resp 18 16 B/P (MAP) 142/76 (98) 153/74 (100) Pulse Ox 98 95 O2 Delivery Room Air Room Air Room Air Room Air 03/07/20 03/08/20 03/08/20 03/08/20 22:36 00:00 01:11 02:14 Temp 99.2 98.7 99.2 98.7 Pulse 73 81 Resp 18 B/P (MAP) 127/92 (104) 127/66 (86) Pulse Ox 99 95 O2 Delivery Room Air Room Air Room Air Room Air 03/08/20 03/08/20 03/08/20 03/08/20 03:00 04:11 04:11 05:08 Temp 98.7 98.3 98.7 98.3 Pulse 68 68 66 Resp 18 B/P (MAP) 124/68 (86) 111/62 (78) 125/64 (84) Pulse Ox 96 O2 Delivery Room Air Room Air O2 Flow Rate 96.0 03/08/20 03/08/20 03/08/20 03/08/20 06:25 07:00 08:00 08:00 Temp 98.3 98.7 98.3 98.7 Pulse 70 66 70 Resp 16 18 20 B/P (MAP) 120/62 (81) 137/72 (93) 153/90 (111) Pulse Ox 96 98 99 O2 Delivery Room Air Room Air Room Air Room Air 03/08/20 09:00 Pulse 70 Resp 16 B/P (MAP) 132/70 (90) Pulse Ox 97 O2 Delivery Room Air Intake and Output 03/07/20 03/07/20 03/08/20 15:00 23:00 07:00 Intake Total 720 ml 961 ml Output Total 250 ml 500 ml Balance 470 ml 461 ml KINSEY PERDOMO MD Mar 08, 2020 10:07
--- NOTE | 2020-03-08 11:34 | NUR ---
SS following for discharge planning. SS reviewed pt chart and discussed with pt RN. Pt and family primarily Mauritian speaking. Pt's cousin, [place], is Ethiopian speaking, . Pt lives with brother and sister in the home. Per family pt's brother and sister able to assist with pt's care in the home. Pt is currently on room air. PT/OT ordered. Pt is self pay pt. SS will continue to follow for discharge planning.
--- NOTE | 2020-03-08 15:46 | NUR ---
Patient transferred to room 658 along with his personal belongings. Telephone report given to Rama Rojas. NIH preformed upon arrival at room 658. Patient NIH score of 6.
--- NOTE | 2020-03-08 16:00 | NUR ---
Patient arrived via wheelchair at 1524, he's awake, alert, oriented x 4, slurred speech, [place] speaking. Patient was placed in a comfortable position, call light placed within reach.
--- NOTE | 2020-03-08 16:20 | RAD ---
Single AP view of the chest. Comparison: None. Indication: Hypertension and CVA Findings: There is severe scoliosis of the thoracic spine. Additionally there appear to be multiple soft tissue density abnormalities on the skin. The heart is enlarged. There is no pneumothorax or effusion. No air space or interstitial disease. Impression: 1. Cardiomegaly. 2. Radiographic findings suggest neurofibromatosis. Electronically signed by: Alber Galloway MD (03/08/2020 4:17 PM) [id number]
[2020-03-08] MEDS: ENOXAPARIN 40 MG/0.4 ML SYRINGE. SQ SCH (17:29)
[2020-03-08] MEDS: SIMVASTATIN 10 MG TABLET PO SCH (21:22)
[2020-03-09 03:19] VITALS: BP 146/76
[2020-03-09 07:15] VITALS: BP 136/69
[2020-03-09] MEDS: IV NORMAL SALINE 1000ML BAG 1,000 ML IV SCH ×2 (07:17→17:06)
[2020-03-09] MEDS: ASPIRIN ENTERIC COATED 325 MG TABLET.DR. PO SCH (08:11)
[2020-03-09 11:28] VITALS: BP 139/76
--- NOTE | 2020-03-09 13:03 | PDOC ---
[employer] PROGRESS NOTE Chief Complaint Chief Complaint 1. 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 POA // date of event 03/06 2. No intracranial hemorrhage. 3. Neurofibromatosis. History of Present Illness History of Present Illness 03/09/2020 Patient seen and examined Chart reviewed Discussed with RN Vitals/I&O Vitals/I&O: Vital Signs Date Time Temp Pulse Resp B/P (MAP) Pulse Ox O2 Delivery O2 Flow Rate FiO2 03/09/20 11:28 99.0 70 16 139/76 (97) 98 Room Air 99.0 I & O 03/08/20 03/08/20 03/09/20 15:00 23:00 07:00 Intake Total 480 ml Output Total 450 ml 100 ml Balance 30 ml -100 ml Physical Exam Physical Exam: RIGHT FACIAL WEAKNESS General: Alert, Oriented X3, Cooperative, No acute distress Heart: Regular rate Abdomen: Normal bowel sounds, Soft, No tenderness Extremities: No cyanosis Assessment and Plan Assessmemt and Plan 1. 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 POA // date of event 03/06 2. No intracranial hemorrhage. 3. Neurofibromatosis. Plan Neurology following PT OT MRI brain Carotid Dopplers Cardiac monitoring Home meds DVT prophylaxis Full code Appreciate subspecialist input Suspect he may need long term or long-term care Comment Review of Relevant I have reviewed the following items jessica (where applicable) has been applied. Justicifation of Admission Dx: Justifications for Admission: Justification of Admission Dx: Yes Stroke - Ischemic: Stroke-Ischemic CARLA VILLANUEVA III DO Mar 09, 2020 13:02
[2020-03-09 15:30] VITALS: BP 151/81
[2020-03-09] MEDS: ENOXAPARIN 40 MG/0.4 ML SYRINGE. SQ SCH (17:07)
[2020-03-09 19:00] VITALS: BP 150/71
[2020-03-09] MEDS: SIMVASTATIN 10 MG TABLET PO SCH (20:45)
[2020-03-09 23:59] VITALS: BP 124/62
[2020-03-10] MEDS: IV NORMAL SALINE 1000ML BAG 1,000 ML IV SCH ×3 (02:51→23:33)
[2020-03-10 03:25] VITALS: BP 123/58
[2020-03-10 07:30] VITALS: BP 132/69
[2020-03-10] MEDS: ASPIRIN ENTERIC COATED 325 MG TABLET.DR. PO SCH (09:05)
[2020-03-10 11:21] VITALS: BP 142/72
--- NOTE | 2020-03-10 12:07 | PDOC ---
[employer] PROGRESS NOTE Chief Complaint Chief Complaint 1. 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 POA // date of event 03/06 2. No intracranial hemorrhage. 3. Neurofibromatosis. History of Present Illness History of Present Illness 03/10/2020 Patient seen and examined Discussed with RN Chart reviewed He still has a dense right hemiparesis (suspect he is going to need rehab and or longterm and or long-term care) 03/09/2020 Patient seen and examined Chart reviewed Discussed with RN Vitals/I&O Vitals/I&O: Vital Signs Date Time Temp Pulse Resp B/P (MAP) Pulse Ox O2 Delivery O2 Flow Rate FiO2 03/10/20 11:21 98.3 73 18 142/72 (95) 98 Room Air 98.3 I & O 03/09/20 03/09/20 03/10/20 15:00 23:00 07:00 Output Total 675 ml 425 ml Balance -675 ml -425 ml Physical Exam Physical Exam: RIGHT FACIAL WEAKNESS General: Alert, Oriented X3, Cooperative, No acute distress Heart: Regular rate Abdomen: Normal bowel sounds, Soft, No tenderness Extremities: No cyanosis Assessment and Plan Assessmemt and Plan 1. 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 POA // date of event 03/06 2. No intracranial hemorrhage. 3. Neurofibromatosis. Plan Neurology following PT OT MRI brain Carotid Dopplers Cardiac monitoring Home meds DVT prophylaxis Full code Appreciate subspecialist input Suspect he may need longterm or long-term care Comment Review of Relevant I have reviewed the following items jessica (where applicable) has been applied. Justicifation of Admission Dx: Justifications for Admission: Justification of Admission Dx: Yes Stroke - Ischemic: Stroke-Ischemic CARLA VILLANUEVA III DO Mar 10, 2020 12:07
[2020-03-10 15:21] VITALS: BP 139/85
[2020-03-10] MEDS: ENOXAPARIN 40 MG/0.4 ML SYRINGE. SQ SCH (16:40)
[2020-03-10] MEDS: SIMVASTATIN 10 MG TABLET PO SCH (20:45)
[2020-03-10 23:52] VITALS: BP 143/81
[2020-03-11 03:17] VITALS: BP 127/75
[2020-03-11 07:25] VITALS: BP 149/71
[2020-03-11] MEDS: ASPIRIN ENTERIC COATED 325 MG TABLET.DR. PO SCH (08:36)
--- NOTE | 2020-03-11 11:03 | PDOC ---
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 No cognitive deficits on bedside examination. 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 Plan Needs inpatient rehab, no insurance Rehabilitation modalities Can go to 6S Aspirin, he is dorene to aspirin. Lipids fine, still starting statin Subjective No complaints Objective Vital Signs Date Time Temp Pulse Resp B/P (MAP) Pulse Ox O2 Delivery O2 Flow Rate FiO2 03/11/20 07:25 98.6 76 16 149/71 (97) 95 Room Air 98.6 03/10/20 08:00 96.0 Intake and Output 03/11/20 07:00 Intake Total 540 ml Output Total 500 ml Balance 40 ml Intake Oral 540 ml Output Urine Total 500 ml PHYSICAL EXAM Alert. Oriented to time, place and person. Speaks Bahraini PERRL. EOMI. CN: mild right central facial weakness. Muscle tone: normal. Muscle strength: 2-3/5 right hemiparesis DTR: 2+ Plantar reflex: flexor Gait: not examined in bed. Sensory exam: no abnormal findings. No cerebellar signs elicited. Review of Relevant I have reviewed the following items jessica (where applicable) has been applied. Medications Current Medications Simvastatin (Zocor) 10 mg QHS PO Last administered on 03/10/20at 20:45; Start 03/07/20 at 21:00 Acetaminophen (Tylenol) 650 mg PRN Q6HRS PRN PO TEMP > 100.4F; Start 03/07/20 at 13:30; Stop 03/08/20 at 09:19; Status DC Acetaminophen (Tylenol Supp) 650 mg PRN Q4HRS PRN AK TEMP > 100.4F; Start 03/07/20 at 13:30; Stop 03/08/20 at 09:20; Status DC Aspirin (Ecotrin) 325 mg DAILYWBKFT PO Last administered on 03/11/20at 08:36; Start 03/08/20 at 08:00 Aspirin (Aspirin Rectal Supp) 300 mg PRN DAILY PRN AK IF UNABLE TO TAKE PO; Start 03/07/20 at 13:30 Sodium Chloride (Normal Saline Flush) 3 ml QSHIFT PRN IV AFTER MEDS AND BLOOD DRAWS; Start 03/07/20 at 16:15 Sodium Chloride 1,000 ml @ 100 mls/hr Q10H IV Last administered on 03/10/20at 23:33; Start 03/07/20 at 16:03 Ondansetron HCl (Zofran) 4 mg PRN Q4HRS PRN IV NAUSEA/VOMITING; Start 03/07/20 at 16:15 Acetaminophen (Tylenol) 650 mg PRN Q4HRS PRN PO TEMP OVER 100.4F OR MILD PAIN Last administered on 03/10/20at 20:45; Start 03/07/20 at 16:15 Acetaminophen (Tylenol Supp) 650 mg PRN Q4HRS PRN AK TEMP OVER 100.4F OR MILD PAIN; Start 03/07/20 at 16:15 Clonidine HCl (Catapres) 0.1 mg PRN Q6HRS PRN PO SBP>160 OR DBP>90; Start 03/07/20 at 16:15 Docusate Sodium (Colace) 100 mg PRN BID PRN PO HARD STOOLS; Start 03/07/20 at 16:15 Albuterol Sulfate (Ventolin Neb Soln) 2.5 mg PRN Q4HRS PRN NEB SHORTNESS OF BREATH; Start 03/07/20 at 16:15 Guaifenesin (Robitussin) 200 mg PRN Q4HRS PRN PO COUGH; Start 03/07/20 at 16:15 Lorazepam (Ativan) 0.5 mg PRN Q4HRS PRN PO ANXIETY / AGITATION; Start 03/07/20 at 16:15 Enoxaparin Sodium (Lovenox 40mg Syringe) 40 mg Q24H SQ Last administered on 03/10/20at 16:40; Start 03/07/20 at 17:00 Active Scripts Active Reported Naproxen 375 Mg Tablet 1 Tab PO BID Vitals/I & O Vital Sign - Last 24 Hours 03/10/20 03/10/20 03/10/20 03/10/20 11:21 15:21 19:52 23:52 Temp 98.3 99.5 98.1 98.3 99.5 98.1 Pulse 73 80 75 Resp 18 18 16 B/P (MAP) 142/72 (95) 139/85 (103) 143/81 (101) Pulse Ox 98 98 98 O2 Delivery Room Air Room Air Room Air Room Air 03/11/20 03/11/20 03:17 07:25 Temp 98.3 98.6 98.3 98.6 Pulse 71 76 Resp 16 16 B/P (MAP) 127/75 (92) 149/71 (97) Pulse Ox 98 95 O2 Delivery Room Air Room Air Intake and Output 03/10/20 03/10/20 03/11/20 15:00 23:00 07:00 Intake Total 240 ml 200 ml 100 ml Output Total 500 ml Balance 240 ml 200 ml -400 ml Justicifation of Admission Dx: Justifications for Admission: Justification of Admission Dx: Yes Stroke - Ischemic: Stroke-Ischemic SHAE JEAN BAPTISTE MD Mar 11, 2020 11:03
[2020-03-11 11:08] VITALS: BP 134/77
[2020-03-11] MEDS: IV NORMAL SALINE 1000ML BAG 1,000 ML IV SCH ×2 (11:37→21:27)
--- NOTE | 2020-03-11 12:07 | PDOC ---
[employer] PROGRESS NOTE Chief Complaint Chief Complaint 1. 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 POA // date of event 03/06 2. No intracranial hemorrhage. 3. Neurofibromatosis. History of Present Illness History of Present Illness 03/11/2020 Patient seen and examined Discussed with case management Discussed with RN Chart reviewed Patient currently working with physical therapy Right leg is starting to move a little but the right arm is still with dense paralysis 03/10/2020 Patient seen and examined Discussed with RN Chart reviewed He still has a dense right hemiparesis (suspect he is going to need rehab and or retirement and or long-term care) 03/09/2020 Patient seen and examined Chart reviewed Discussed with RN Vitals/I&O Vitals/I&O: Vital Signs Date Time Temp Pulse Resp B/P (MAP) Pulse Ox O2 Delivery O2 Flow Rate FiO2 03/11/20 11:08 99.3 83 18 134/77 (96) 98 Room Air 99.3 03/10/20 08:00 96.0 I & O 03/10/20 03/10/20 03/11/20 15:00 23:00 07:00 Intake Total 240 ml 200 ml 100 ml Output Total 500 ml Balance 240 ml 200 ml -400 ml Physical Exam Physical Exam: Skin; he has thousands of neurofibromas Neurologic he has a dense right hemiparesis although the right leg is starting to move a little bit General: Alert, Oriented X3, Cooperative, No acute distress Heart: Regular rate Abdomen: Normal bowel sounds, Soft, No tenderness Extremities: No cyanosis Skin: No rashes Assessment and Plan Assessmemt and Plan 1. 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 POA // date of event 03/06 2. No intracranial hemorrhage. 3. Neurofibromatosis. Plan Neurology following PT OT MRI brain Carotid Dopplers Cardiac monitoring Home meds DVT prophylaxis Full code Appreciate subspecialist input Discharge disposition is difficult because he does not have insurance He apparently can live with his brother and sister On the day of discharge social service liaison is going to try to get him some durable medical equipment such as a wheelchair Comment Review of Relevant I have reviewed the following items jessica (where applicable) has been applied. Justicifation of Admission Dx: Justifications for Admission: Justification of Admission Dx: Yes Stroke - Ischemic: Stroke-Ischemic CARLA VILLANUEVA III DO Mar 11, 2020 12:07
--- NOTE | 2020-03-11 14:01 | NUR ---
TAHIR following. TAHIR reviewed chart and coordinated care with RN. TAHIR called and spoke with pt's cousin London, regarding discharge planning. London stated he thinks pt has health insurance from his job and will look at pt's home and call this SW back. Discharge plan is for pt to return home with 24 hour care from his sister and brother. TAHIR did LVM for [facility] with [facility] to see if they take any patients self pay. London stated he thinks he can borrow a wc for patient from a family member. [facility] [place] has wheelchairs that can be bought for $330 or rented for $45 per week. TAHIR notified London of this information. TAHIR to continue following.
[2020-03-11 15:15] VITALS: BP 152/82
[2020-03-11] MEDS: ENOXAPARIN 40 MG/0.4 ML SYRINGE. SQ SCH (17:23)
[2020-03-11 19:00] VITALS: BP 135/68
[2020-03-11] MEDS: SIMVASTATIN 10 MG TABLET PO SCH (21:27)
[2020-03-11 23:00] VITALS: BP 149/69
[2020-03-12 03:00] VITALS: BP 121/70
[2020-03-12] MEDS: IV NORMAL SALINE 1000ML BAG 1,000 ML IV SCH ×2 (06:04→15:56)
[2020-03-12 07:17] VITALS: BP 143/67
[2020-03-12] MEDS: ASPIRIN ENTERIC COATED 325 MG TABLET.DR. PO SCH (08:27)
[2020-03-12 11:13] VITALS: BP 138/72
--- NOTE | 2020-03-12 13:06 | PDOC ---
PROGRESS NOTES Chief Complaint Chief Complaint 1. 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 POA // date of event 03/06 2. No intracranial hemorrhage. 3. Neurofibromatosis. needs PT History of Present Illness History of Present Illness Patient seen and examined Discussed with case management Discussed with RN Chart reviewed Patient currently working with physical therapy improvement with PT overall Vitals Vitals Vital Signs Date Time Temp Pulse Resp B/P (MAP) Pulse Ox O2 Delivery O2 Flow Rate FiO2 03/12/20 11:13 98.0 78 16 138/72 (94) 97 Room Air 98.0 Physical Exam Physical Exam Skin; he has thousands of neurofibromas Neurologic he has a dense right hemiparesis although the right leg is starting to move a little bit General: Alert, Oriented X3, Cooperative, No acute distress Heart: Regular rate Abdomen: Normal bowel sounds, Soft, No tenderness Extremities: No cyanosis Skin: No rashes Comment Review of Relevant I have reviewed the following items ejssica (where applicable) has been applied. Medications Current Medications Simvastatin (Zocor) 10 mg QHS PO Last administered on 03/11/20at 21:27; Start 03/07/20 at 21:00 Acetaminophen (Tylenol) 650 mg PRN Q6HRS PRN PO TEMP > 100.4F; Start 03/07/20 at 13:30; Stop 03/08/20 at 09:19; Status DC Acetaminophen (Tylenol Supp) 650 mg PRN Q4HRS PRN [place] TEMP > 100.4F; Start 03/07/20 at 13:30; Stop 03/08/20 at 09:20; Status DC Aspirin (Ecotrin) 325 mg DAILYWBKFT PO Last administered on 03/12/20at 08:27; Start 03/08/20 at 08:00 Aspirin (Aspirin Rectal Supp) 300 mg PRN DAILY PRN [place] IF UNABLE TO TAKE PO; Start 03/07/20 at 13:30 Sodium Chloride (Normal Saline Flush) 3 ml QSHIFT PRN IV AFTER MEDS AND BLOOD DRAWS; Start 03/07/20 at 16:15 Sodium Chloride 1,000 ml @ 100 mls/hr Q10H IV Last administered on 03/12/20at 06:04; Start 03/07/20 at 16:03 Ondansetron HCl (Zofran) 4 mg PRN Q4HRS PRN IV NAUSEA/VOMITING; Start 03/07/20 at 16:15 Acetaminophen (Tylenol) 650 mg PRN Q4HRS PRN PO TEMP OVER 100.4F OR MILD PAIN Last administered on 03/10/20at 20:45; Start 03/07/20 at 16:15 Acetaminophen (Tylenol Supp) 650 mg PRN Q4HRS PRN IA TEMP OVER 100.4F OR MILD PAIN; Start 03/07/20 at 16:15 Clonidine HCl (Catapres) 0.1 mg PRN Q6HRS PRN PO SBP>160 OR DBP>90; Start 03/07/20 at 16:15 Docusate Sodium (Colace) 100 mg PRN BID PRN PO HARD STOOLS; Start 03/07/20 at 16:15 Albuterol Sulfate (Ventolin Neb Soln) 2.5 mg PRN Q4HRS PRN NEB SHORTNESS OF BREATH; Start 03/07/20 at 16:15 Guaifenesin (Robitussin) 200 mg PRN Q4HRS PRN PO COUGH; Start 03/07/20 at 16:15 Lorazepam (Ativan) 0.5 mg PRN Q4HRS PRN PO ANXIETY / AGITATION; Start 03/07/20 at 16:15 Enoxaparin Sodium (Lovenox 40mg Syringe) 40 mg Q24H SQ Last administered on 03/11/20at 17:23; Start 03/07/20 at 17:00 Active Scripts Active Reported Naproxen 375 Mg Tablet 1 Tab PO BID Vitals/I & O Vital Sign - Last 24 Hours 03/11/20 03/11/20 03/11/20 03/11/20 15:15 19:00 19:55 23:00 Temp 99.7 98.3 99.7 99.7 98.3 99.7 Pulse 86 92 83 Resp 17 17 B/P (MAP) 152/82 (105) 135/68 (90) 149/69 (95) Pulse Ox 97 96 95 O2 Delivery Room Air Room Air Room Air Room Air 03/12/20 03/12/20 03/12/20 03/12/20 03:00 07:17 08:30 11:13 Temp 97.9 98.3 98.0 97.9 98.3 98.0 Pulse 89 78 78 Resp 17 18 16 B/P (MAP) 121/70 (87) 143/67 (92) 138/72 (94) Pulse Ox 93 95 97 O2 Delivery Room Air Room Air Room Air Room Air Intake and Output 03/11/20 03/11/20 03/12/20 15:00 23:00 07:00 Intake Total 1000 ml 1000 ml Output Total 150 ml 550 ml Balance 850 ml 450 ml FLOR VALDOVINOS MD Mar 12, 2020 13:06
--- NOTE | 2020-03-12 13:13 | NUR ---
SW following. Reviewed chart and spoke with RN. TAHIR met with pt and pt's cousin London today, 03/12/2020. Pt listed as self-pay but pt provided SW with [employer] insurance card from pt's place of employment. Pt received his final paycheck this month and is not sure if his [employer] insurance is active. TAHIR provided insurance information to [facility] and [facility] Borges. TAHIR phoned and faxed referral to [facility] with [facility], , (fax) per request of pt. Patient Choice of Vendor request form completed. [facility] to check and see if pt's [employer] insurance is active but stated they can't take this pt self-pay. TAHIR requested COVID testing from RN. Pt's cousin London will continue working to find this pt a wheelchair. TAHIR did fax a referral for self-pay to [facility] , , [phone] (fax) as well per pt approval. TAHIR to continue following. Addendum: 03/12/20 at 1536 by DONNA HARO TAHIR heard back from [facility] with [facility] and pt's [employer] insurance only pays for 2 hospitalizations per year and they can't take patient self-pay. TAHIR obtained discharge order from Dr. Bermudez. TAHIR phoned and faxed final discharge orders and TAHIR notes to [facility], , (fax). TAHIR coordinated care with pt's cousin London at [phone]. London stated that he bought pt a wheelchair and that pt's brother and sister will come to the hospital for education from PT/OT about how to care for pt in the home. Pt's siblings will also provide transportation for pt today, 03/12/2020 with . SW coordinated care with PT/OT to arrange for family teaching. Pt will have 24 hour care from family. Pt provided contact information for [facility] and [place] stated he will help pt call to get a PCP. No further SW needs at this time. Addendum: 03/12/20 at 1545 by DONNA HARO [facility] to confirm that SW notes and final discharge orders were received and that they will provide HH for pt self-pay.
[2020-03-12 14:42] VITALS: BP 142/70
[2020-03-12] MEDS ORDERED: SIMV10TA15 PO (15:08)
[2020-03-12] MEDS ORDERED: ASPI325T11 PO (15:08)
[2020-03-12] MEDS ORDERED: LISI-338 PO (15:09)
--- NOTE | 2020-03-12 15:12 | SNU/HH DC ---
DISCHARGE WITH HOME HEALTH DISCHARGE INFORMATION: Discharge Date: Mar 12, 2020 Condition on Discharge: Stable CODE STATUS: Code Status: Full HOME HEALTH: Face to Face: I certify this patient is under my care and that I, or a nurse practitioner or trice cota's family and divorce legal assistant working with me, had a face to face encounter that meets the physician face to face encounter requirements with this patient on []. RN For Eval/Treatment: Yes Physical Therapy For: Evalulation/Treatment Occupational Therapy For: Evaluation/Treatment Pt Meets Homebound Status: Unsteady balance w/ amb, POST DISCHARGE ORDERS: DIET AFTER DISCHARGE: Cardiac CHECKS AFTER DISCHARGE: Checks after discharge: Check blood press - daily CERTIFICATION STATEMENT: Certification Statement: Certification Statement: Based on the above finding, I certify that this patient is confined to the home and needs intermittent fci care, physical therapy and/or speech therapy, or continues to need occupational therapy.~ This patient is under my care, and I have initiated the establishment of the plan of care.~ This patient will be followed by myself or a community physician who will periodically review the plan of care. Home Meds Active Scripts Lisinopril (LISINOPRIL) 5 Mg Tablet, 1 TAB PO DAILY for htn for 30 Days, #30 TAB 5 Refills Prov:FLOR VALDOVINOS MD 03/12/20 Aspirin (ASPIRIN EC) 325 Mg Tablet.dr, 325 MG PO DAILYWBKFT for cva for 30 Days, #30 TAB.SR 1 Refill Prov:FLOR VALDOVINOS MD 03/12/20 Simvastatin (SIMVASTATIN) 10 Mg Tablet, 10 MG PO QHS for cva for 30 Days, #30 TAB 1 Refill Prov:FLOR VALDOVINOS MD 03/12/20 Discontinued Reported Medications Naproxen (NAPROXEN) 375 Mg Tablet, 1 TAB PO BID, #60 TAB 5 Refills 03/06/15 FLOR VALDOVINOS MD Mar 12, 2020 15:12
--- NOTE | 2020-03-12 15:18 | PDOC3 ---
Discharge Summary Visit Information Date of Admission: Mar 07, 2020 Date of Discharge: Mar 12, 2020 Brief Hospital Course Allergies Allergies Coded Allergies Type Severity Reaction Last Updated Verified No Known Drug Allergies 03/06/15 No Vital Signs Vital Signs Date Time Temp Pulse Resp B/P (MAP) Pulse Ox O2 Delivery O2 Flow Rate FiO2 03/12/20 14:42 98.5 79 16 142/70 (94) 97 Room Air 98.5 Brief Hospital Course Mr. Durant is a 64 ol male who presents with weakness, slurred speech since 1 da not given tpa in ED. He denies any prior history of stroke, seizure, head injury. There is no headache, diplopia, dysphagia. 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 No cognitive deficits on bedside examination. 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 Plan patient started on ASA and statin therapy. neuro consulted. TTE done and negative for bubble study. speech PT OT consulted. rehab recommended short term rehab but patient without insurance. patient has 24 hr care at home. will dc ho wi with home health. BP noted to be elevated. will start low dose ROSALIO-I. needs follow up BMP in 2 weeks to ensure stable cr. scripts for statin, asa and lisinopril given. patient will dc home with family today. home health ordered at discharge. Discharge Information Condition at Discharge: Improved Follow Up: Weeks Disposition/Orders: D/C to Home w/ HH Scheduled Aspirin (Aspirin Ec) 325 Mg Tablet.dr, 325 MG PO DAILYWBKFT for cva for 30 Days, #30 Ref 1 Prescribed by: FLOR VALDOVINOS MD on 03/12/20 1508 Lisinopril (Lisinopril) 5 Mg Tablet, 1 TAB PO DAILY for htn for 30 Days, #30 Ref 5 Prescribed by: FLOR VALDOVINOS MD on 03/12/20 1509 Simvastatin (Simvastatin) 10 Mg Tablet, 10 MG PO QHS for cva for 30 Days, #30 Ref 1 Prescribed by: FLOR VALDOVINOS MD on 03/12/20 1508 Discontinued Medications Naproxen (Naproxen) 375 Mg Tablet, 1 TAB PO BID, #60 Ref 5 (Reported) Entered as Reported by: YONATHAN BAPTISTE on 03/06/15 0857 Justicifation of Admission Dx: Justifications for Admission: Justification of Admission Dx: Yes Stroke - Ischemic: Stroke-Ischemic FLOR VALDOVINOS MD Mar 12, 2020 15:18
--- NOTE | 2020-03-12 16:15 | NUR ---
Pt left unit at 1615 by wheelchair via private vehicle. Pt accompanied by brother and sister. Pt's IV removed with no complications, VSS. Discharge instructions discussed in depth with pt, pt's brother, and pt's sister per commodities broker phone by this RN. Teaching provided by this RN in regards to stroke prevention. Handouts provided to pt in Uzbek. RENUKA Carbone also provided teaching to pt and family per commodities broker phone. Additional questions addressed by this RN and RENUKA Carbone.
== END 2020-03-12 16:21 | disposition home health service (06) | DRG 65 ==
LOC: ER 09:02 → ED HOLD 11:02 → 1 WEST ICU 14:39 → 6 SOUTH 03-08 15:24
PROVIDERS: ADMIT Family Medicine; ATTEND Family Medicine
DX: I63.9 Cerebral infarction, unspecified (principal); G81.91 Hemiplegia, unspecified affecting right dominant side; I07.1 Rheumatic tricuspid insufficiency; L72.3 Sebaceous cyst; L94.2 Calcinosis cutis; Q85.00 Neurofibromatosis, unspecified; Z82.49 Family history of ischemic heart disease and other diseases of the circulatory system; Z86.73 Personal history of transient ischemic attack (TIA), and cerebral infarction without residual deficits; Z87.891 Personal history of nicotine dependence
CPT/HCPCS: 36415; 70450; 70551; 71045; 73070; 73562; 73620; 80048; 80053; 80061; 81001; 82962; 83735; 84484; 85025; 85610; 85730; 93005; 93306; 93880; J1650; J7030; 92526-GN; 92610-GN; 97110-GO; 97110-GP; 97116-GP; 97530-GO; 97530-GP; 97535-GO; 99291-25; G0378